=== PATIENT | female | born 1950 | race Caucasian/White ===

== ENCOUNTER → 2018-07-04 08:43 | Outpatient (CLI) | payer MEDICARE, OTHER, SELFPAY ==
--- NOTE | 2018-07-04 | DI.MG.S_ITS ---
BILATERAL DIGITAL SCREENING MAMMOGRAM 3D/2D WITH CAD: 07/04/2018 CLINICAL: Routine screening. Family history of breast cancer. Comparison is made to exams dated: 06/17/2013 mammogram, 08/24/2011 mammogram, and 08/26/2009 mammogram - [facility]. The tissue of both breasts is heterogeneously dense. This may lower the sensitivity of mammography. Current study was also evaluated with a Computer Aided Detection (CAD) system. No significant masses, calcifications, or other findings are seen in either breast. There has been no significant interval change. IMPRESSION: NEGATIVE There is no mammographic evidence of malignancy. A 1 year screening mammogram is recommended. This exam was interpreted at Station ID: [id number]. NOTE: For mammograms, a report in lay terms will be sent to the patient. Approximately 15% of breast malignancies will not be visualized mammographically. In the management of a palpable breast mass, a negative mammogram must not discourage biopsy of a clinically suspicious lesion. Electronically Signed By: Rylan marquez/jin:07/04/2018 12:13:38 letter sent: Normal Exam ACR BI-RADS Category 1: Negative [id number]
== END ==
PROVIDERS: PCP Family Medicine; Visit Provider Family Medicine
DX: Z12.31 Encounter for screening mammogram for malignant neoplasm of breast (principal); Z80.3 Family history of malignant neoplasm of breast
CPT/HCPCS: 77063; 77067

== ENCOUNTER → 2020-03-01 08:30 | Outpatient (CLI) | payer MEDICARE, OTHER, SELFPAY ==
[2020-03-01 10:22] LABS: COVID19 -Nasal RAPID Negative (Negative)
== END ==
PROVIDERS: Visit Provider Nurse Practitioner Family
DX: Z01.812 Encounter for preprocedural laboratory examination (principal); Z20.822 Contact with and (suspected) exposure to COVID-19
CPT/HCPCS: 87635; C9803

== ENCOUNTER 2020-03-02 06:18 | Day surgery (SDC) | payer MEDICARE, OTHER, SELFPAY ==
[2020-03-02] MEDS: PROPARACAINE 0.5% OPHTH SOL 2 DROPS EYE-OP (07:10)
[2020-03-02] MEDS: CATARACT EYE COMPOUND (10 DROPS/SYRINGE) 3 DROPS EYE-OP (07:17)
[2020-03-02 07:20] VITALS: BP 130/69; PULSE 52; RESP 20; TEMP 36.6; O2SAT 98; BMI 22.0
--- NOTE | 2020-03-02 07:41 | PM.PREOP ---
Pre-operative Note Interval Note History & Physical reviewed/Exam performed by Physician: Yes Changes to H&P: No
--- NOTE | 2020-03-02 07:42 | P.OP_ITS ---
Operative Date/Time/Diagnoses Pre-op diagnosis: Nuclear Cataract Left eye Post-op diagnosis: same Procedure & Clinicians Same procedure as scheduled: Yes Surgeon: Jose Manuel Harvey Anesthesia Type: MAC +/- and Sedation Operative Notes Procedure in detail: Patient brought to the operating suite. Tetracaine drops placed in the left eye. Patient was prepped and draped in sterile manner. Wire lid speculum was placed in the eye. Betadine drops were placed on the eye. This was irrigated. Lidocaine jelly was placed on the eye. A paracentesis port was created with a side-port blade. 0.1 mL 1% preservative free lidocaine was injected into the anterior chamber. The anterior chamber was deepened with viscoelastic. 2.6 mm keratome was used to create a temporal clear corneal incision. Cystotome and Utrata forceps were used to create continuous tear capsulorrhexis. Balanced salt solution was used to hydro dissect the nucleus. The phacoemulsification handpiece was inserted and the nucleus was removed using the stop and chop technique. The irrigation aspiration handpiece was inserted and the remaining cortex was removed. Anterior chamber was deepened with viscoe lastic. An Mahmood ZCB00 intraocular lens with a power of 23.0 was injected into the capsular bag. Irrigation aspiration handpiece was inserted and the remaining viscoelastic was removed. Incision was hydrated with balanced salt solution and found to be leak free with pressure with [place]ck-[place] sponges. 0.1 mL Vigamox injected anterior chamber. 0.3 mL Kenalog 10 mg was injected subconjunctivally. Lid speculum was removed. The patient left the operating room in excellent condition. Complications: none Post-operative Condition: stable Disposition: same day surgery
--- NOTE | 2020-03-02 07:42 | PM.PREOP ---
Pre-operative Note Interval Note History & Physical reviewed/Exam performed by Physician: Yes Changes to H&P: No
[2020-03-02] MEDS: CHONDROIDTIN/SOD HYALURONATE 1.05 ML SYRINGE INTRAOCULA (07:55)
[2020-03-02] MEDS: PHENYLEPHRINE/LIDOCAINE VIAL (OR) 0.2 ML EYE-OP (07:55)
[2020-03-02] MEDS: TRIAMCINOLONE 50 MG/5 ML VIAL INJ (07:55)
[2020-03-02] MEDS: LIDOCAINE JELLY 2% 5 ML 1 APPLIC TOP (07:55)
[2020-03-02] MEDS: MOXIFLOXACIN INJ 5 MG/ML VIAL EYE-OP (07:55)
[2020-03-02] MEDS: TETRACAINE 0.5% OPHTH DROPS 4 ML 2 DROPS EYE-OP (07:56)
[2020-03-02] MEDS: BALANCED SALT IRRIG SOLN NO.2 500 ML, EPINEPHrine 1 MG IRR (07:56)
[2020-03-02 08:06] VITALS: BP 123/69; PULSE 50; RESP 16; TEMP 36.8; O2SAT 99
== END 2020-03-02 08:18 | disposition home or self-care (01) ==
PROVIDERS: Referring Provider Ophthalmology; Visit Provider Ophthalmology
PROC: (CPT 66984; principal; 2020-03-02 07:45)
DX: H25.12 Age-related nuclear cataract, left eye (principal); I10 Essential (primary) hypertension; E78.5 Hyperlipidemia, unspecified; F41.9 Anxiety disorder, unspecified
CPT/HCPCS: 66984; J0171; J2250; J3301

== ENCOUNTER → 2020-03-15 09:15 | Outpatient (CLI) | payer MEDICARE, OTHER, SELFPAY ==
[2020-03-15 11:26] LABS: COVID19 -Nasal RAPID Negative (Negative)
== END ==
PROVIDERS: Visit Provider Physician Assistant
DX: Z20.822 Contact with and (suspected) exposure to COVID-19 (principal)
CPT/HCPCS: 87635; C9803

== ENCOUNTER 2020-03-16 06:27 | Day surgery (SDC) | payer MEDICARE, OTHER, SELFPAY ==
[2020-03-16 07:16] VITALS: BP 116/65; PULSE 53; RESP 16; TEMP 36.5; O2SAT 100; BMI 22.0
[2020-03-16] MEDS: PROPARACAINE 0.5% OPHTH SOL 2 DROPS EYE-OP (07:29)
[2020-03-16] MEDS: CATARACT EYE COMPOUND (10 DROPS/SYRINGE) 3 DROPS EYE-OP (07:30)
--- NOTE | 2020-03-16 07:38 | PM.PREOP ---
Pre-operative Note Interval Note History & Physical reviewed/Exam performed by Physician: Yes Changes to H&P: No
--- NOTE | 2020-03-16 07:38 | PM.OP.1 ---
Operative Date/Time/Diagnoses Pre-op diagnosis: Nuclear cataract right eye Procedure & Clinicians Procedure: Cataract Surgery Same procedure as scheduled: Yes Surgeon: Jose Manuel Harvey Anesthesia Type: MAC +/- and Sedation Operative Notes Procedure in detail: Patient brought to the operating suite. Tetracaine drops placed in the right eye. Patient was prepped and draped in sterile manner. Wire lid speculum was placed in the eye. Betadine drops were placed on the eye. This was irrigated. Lidocaine jelly was placed on the eye. A paracentesis port was created with a side-port blade. 0.1 mL 1% preservative free lidocaine was injected into the anterior chamber. The anterior chamber was deepened with viscoelastic. 2.6 mm keratome was used to create a temporal clear corneal incision. Cystotome and Utrata forceps were used to create continuous tear capsulorrhexis. Balanced salt solution was used to hydro dissect the nucleus. The phacoemulsification handpiece was inserted and the nucleus was removed using the stop and chop technique. The irrigation aspiration handpiece was inserted and the remaining cortex was removed. Anterior chamber was deepened with viscoelastic. An Mahmood ZCB00 intraocular lens with a power of 23.0 was injected into the capsular bag. Irrigation aspiration handpiece was inserted and the remaining viscoelastic was removed. Incision was hydrated with balanced salt solution and found to be leak free with pressure with Weck-[place] sponges. 0.1 mL Vigamox injected anterior chamber. 0.3 mL Kenalog 10 mg was injected subconjunctivally. Lid speculum was removed. The patient left the operating room in excellent condition. Complications: none Post-operative Condition: stable Disposition: same day surgery
[2020-03-16] MEDS: TRIAMCINOLONE 50 MG/5 ML VIAL INJ (07:54)
[2020-03-16] MEDS: CHONDROIDTIN/SOD HYALURONATE 1.05 ML SYRINGE INTRAOCULA (07:54)
[2020-03-16] MEDS: PHENYLEPHRINE/LIDOCAINE VIAL (OR) 0.2 ML EYE-OP (07:54)
[2020-03-16] MEDS: MOXIFLOXACIN INJ 5 MG/ML VIAL EYE-OP (07:54)
[2020-03-16] MEDS: BALANCED SALT IRRIG SOLN NO.2 500 ML, EPINEPHrine 1 MG IRR (07:55)
[2020-03-16] MEDS: TETRACAINE 0.5% OPHTH DROPS 4 ML 2 DROPS EYE-OP (07:55)
[2020-03-16] MEDS: LIDOCAINE JELLY 2% 5 ML 1 APPLIC TOP (07:55)
[2020-03-16 08:05] VITALS: BP 108/67; PULSE 51; RESP 16; TEMP 36.8; O2SAT 100
== END 2020-03-16 08:14 | disposition home or self-care (01) ==
PROVIDERS: Referring Provider Ophthalmology; Visit Provider Ophthalmology
PROC: (CPT 66984; principal; 2020-03-16 07:45)
DX: H25.11 Age-related nuclear cataract, right eye (principal); I10 Essential (primary) hypertension; K21.9 Gastro-esophageal reflux disease without esophagitis
CPT/HCPCS: 66984; J0171; J2250; J3301

== ENCOUNTER → 2020-05-27 11:03 | Outpatient (CLI) | payer MEDICARE, OTHER, SELFPAY ==
--- NOTE | 2020-05-27 | DI.CT.S_ITS ---
PROCEDURE: CT LUMBAR SPINE WO CON INDICATIONS: Scoliosis, unspecified TECHNIQUE: Noncontrast 3 mm thick sections acquired from the T12 level to the sacrum. Sagittal and coronal reformats were constructed. For radiation dose reduction, the following was used: automated exposure control. COMPARISON: [facility], MR, L-SPINE W&WO CONTRAST, 02/07/2017, 17:56. [facility], CR, XR LUMBAR SPINE 2 OR 3 VIEWS, 02/21/2017, 10:51. [facility], CR, XR LUMBAR SPINE 2 OR 3 VIEWS, 05/30/2017, 11:11. [facility], CR, XR LUMBAR SPINE 2 OR 3 VIEWS, 05/18/2020, 15:02. FINDINGS: Image quality: Excellent. Bones: No acute vertebral body compression fractures. No suspicious lytic or blastic bony lesions. No pars defects. Mild levoconvex scoliotic curvature is noted. Minimal retrolisthesis is seen at L2-L3. T12-L1: Normal. L1-L2: Normal. L2-L3: [id number]-[id number] loss of disc height is seen. Moderate disc bulge can be seen at this level. There is a prominent disc protrusion seen, which is eccentric to the left. There is moderate to severe bilateral neural foraminal narrowing seen, left worse than right. There is a degree of compression seen upon the exiting nerve roots. Moderate central canal narrowing is seen. These imaging findings have progressed compared to the prior study. L3-L4: Moderate to severe loss of disc height is seen. Vacuum disc phenomenon is seen at this level. Endplate irregularity and sclerosis can be seen. At least partially bridging endplate osteophytes can be seen on the right. Posteriorly projected endplate osteophytes are seen. Moderate disc bulge is seen, with disc protrusions within both foraminal regions. Moderate facet joint hypertrophy is seen. There is moderate to severe bilateral neural foraminal narrowing seen, left worse than right. At least moderate central canal narrowing can be seen. These imaging findings have progressed compared to the prior study. L4-L5: Postoperative changes are seen at this level, with left-sided pedicle screws. The screws are well placed. There has been removal of portions of the posterior elements. The disc height is relatively well preserved. Moderate disc bulge is seen. Moderate bilateral neural foraminal narrowing can be seen, right worse than left. No significant central canal narrowing is seen. Stable from the prior study. L5-S1: The disc height is well preserved. Mild generalized disc bulge is seen. At least moderate facet hypertrophy can be seen. No significant neural foraminal narrowing can be seen. The central canal is widely patent. When comparison is made with the prior examination, these findings are similar. Soft tissues: No retroperitoneal masses or hematomas. Visualized aorta is normal in caliber. Atherosclerotic calcification is noted. IMPRESSION: L4-5 postoperative hardware, without complication seen. Multiple levels of degenerative change are seen, which are worst at L2-L3 and L3-L4. Dictated by: Jax Hahn M.D. on 05/27/2020 at 10:46 Approved by: Jax Hahn M.D. on 05/27/2020 at 10:54
== END ==
PROVIDERS: PCP Nurse Practitioner Family; Referring Provider Nurse Practitioner Family; Visit Provider Orthopaedic Surgery Orthopaedic Surgery of the Spine
DX: M41.9 Scoliosis, unspecified (principal); M47.816 Spondylosis without myelopathy or radiculopathy, lumbar region
CPT/HCPCS: 72131

== ENCOUNTER 2020-06-20 17:34 | Emergency (ER) | payer MEDICARE, OTHER, SELFPAY ==
[2020-06-20 17:41] VITALS: BP 166/69; PULSE 61; RESP 20; TEMP 37.2; O2SAT 100
--- NOTE | 2020-06-20 18:04 | ED.ANIMALBIT ---
HPI - Animal Bite General Chief Complaint: Animal Bite Stated Complaint: cat bite left pinky finger and leg Time Seen by Provider: 06/20/20 18:04 Source: patient Mode of arrival: Ambulatory Limitations: no limitations History of Present Illness HPI narrative: 70-year-old female nonsmoker with history of hypertension and up-to-date tetanus shot complains of the chief complaint of a provoked cap bite to her left pinky finger and her left anterior guevara. She states that her cat has had infected ear and she was attempting to care for it when it became upset and bit and scratched her. The patient is hers and can be observed for the next 10 days. She has full range of motion and no active bleeding. She denies any numbness, tingling or weakness complaint: animal bite Onset (ago): hour(s) Animal: cat Description of animal: household pet Mechanism: bite Location - Extremities: Left: hand and lower leg Pain description: sharp Severity scale (1-10): 3 Context: provoked Associated symptoms: none Treatments prior to arrival: wound dressing(s) and irrigation Related Data Patient tetanus UTD: Yes Home Medications Medication Instructions Recorded Confirmed [Iberogast] 20 drp PO Q DAY PRN #0 02/03/16 03/16/20 [bosweilla] 1 tab PO 2-3XDAY PRN #0 02/03/16 03/16/20 atenolol 50 mg PO QDAY #0 02/03/16 03/16/20 atorvastatin [Lipitor] 20 mg PO HS #0 02/03/16 03/16/20 Align 4 mg PO Q DAY #0 08/21/16 03/16/20 sertraline 50 mg PO DAILY 03/02/20 03/16/20 Previous Rx's Medication Instructions Recorded alprazolam 0.5 mg PO HS #20 tab 05/26/17 amoxicillin-pot clavulanate 1 tab PO BID #20 tab 06/20/20 [Augmentin] Allergies Allergy/AdvReac Type Severity Reaction Status Date / Time morphine [MORPHINE] Allergy Unknown HIVES Verified 03/16/20 07:12 Sulfa (Sulfonamide Allergy Unknown HIVES Verified 03/16/20 07:12 Antibiotics) [SULFA (SULFONAMIDE ANTIBIOTICS)] Review of Systems Constitutional Constitutional: Denies chills, Denies fatigue, Denies fever(s), Denies frequent falls, Denies lethargy and Denies weakness Eyes Eyes: Denies change in vision, Denies eye discharge, Denies irritation and Denies loss of vision ENT Ears, Nose, Mouth, and Throat: Denies change in voice, Denies dizziness, Denies neck pain, Denies sore throat and Denies throat swelling Cardiovascular Cardiovascular: Denies chest pain, Denies irregular heart rhythm, Denies lightheadedness, Denies palpitations, Denies dyspnea, Denies dyspnea on exertion and Denies orthopnea Respiratory Respiratory: Denies cough, Denies dyspnea, Denies dyspnea on exertion and Denies wheezing Gastrointestinal Gastrointestinal: Denies abdominal pain, Denies change in bowel habits, Denies diarrhea, Denies nausea and Denies vomiting Musculoskeletal Musculoskeletal: Denies neck pain and Denies numbness Integumentary/Breasts Skin/Breast: Denies pruritus, Denies erythema, Denies rash and Reports wounds Neurologic Neurologic: Denies behavioral changes, Denies confusion, Denies dizziness, Denies frequent falls, Denies loss of vision, Denies numbness and Denies weakness Psychiatric Psychiatric: Denies anxiety, Denies behavioral changes, Denies confusion, Denies depression, Denies homicidal ideation and Denies suicidal ideation Endocrine Endocrine: Denies fatigue, Denies flushing and Denies palpitations Hematologic/Lymphatic Hematologic/Lymphatic: Denies easy bruising Allergic/Immunologic Allergic/Immunologic: Denies urticaria, Denies throat swelling and Denies wheezing Patient History Social History household members: family Smoking Status: Former smoker alcohol intake: current Smoking Status: Former smoker alcohol intake frequency: 0-2 drinks per day Substance Use Type: does not use Exam Narrative Exam Narrative: GEN: AOx3 and in mild distress EYES: Pupils are equal, round, and reactive to light and accommodation. Extraoccular muscles are intact bilaterally. There is no subconjunctival hemorrhage or exudate. CHEST: Lungs are clear to auscultation bilaterally and free of wheezes, rales, or rhonchi. Heart rate is regular rhythm, there are no murmurs, clicks, rubs, or gallops. There is no chest wall tenderness. ABD: Abdomen is soft and nontender. There is no guarding or rebound. Bowel sounds are normal in all 4 quadrants. There is no mass or organomegaly. EXT: 0.5 cm laceration to the tip of left index finger and slightly gape am bleeding, no foreign body, will benefit from 1 suture. Otherwise Full painless ROM of all extremities with no loss of sensation or strength. SKIN: Additionally, she has to puncture wounds to her left anterior guevara where she was apparently scratched, no suspicion of foreign body, no active bleeding, no need for repair Warm, pink, and dry. No erythema or rash Initial Vital Signs Initial Vital Signs: Vital Signs Temperature 99.0 F 06/20/20 17:41 Pulse Rate 61 06/20/20 17:41 Respiratory Rate 20 06/20/20 17:41 Blood Pressure 166/69 H 06/20/20 17:41 Pulse Oximetry 100 06/20/20 17:41 Procedures Laceration Repair Laceration 1: Site: hand Side (If applicable): left Size (cm): 0.5 Description: linear Depth: simple, single layer Pre-repair: wound explored Skin layer closed with: nylon Size (cm): 5-0 Number of sutures: 1 Technique: simple, interrupted Course Orders Ordered: Discontinued Medications Amoxicillin/Clavulanate Potassium (Amoxicillin/Clav 875/125 Mg) 1 tab PO NOW ONE Stop: 06/20/20 18:17 Last Admin: 06/20/20 18:22 Dose: 1 tab Documented by: ROSI Vital Signs Vital signs: Vital Signs - 8 hr 06/20/20 17:41 Temperature 99.0 F Pulse Rate 61 Respiratory Rate 20 Blood Pressure 166/69 H Pulse Oximetry 100 MDM - Animal Bite MDM Narrative Medical decision making narrative: Patient has uncomplicated cat bite to left index finger. No suspicion of foreign body, no evidence of cellulitis, flexor tenosynovitis or other. Patient is given extensive return precautions and has had her questions answered to her apparent satisfaction Discharge Plan Departure Patient Disposition: Home Clinical Impression: Cat bite Qualifiers: Encounter type: initial encounter Qualified Code(s): W55.01XA - Bitten by cat, initial encounter Instructions: DI for Cat Bite Activity Restrictions/Additional Instructions: Please keep the wound clean and dry to the best of your ability. Please monitor for signs of infection such as redness to the skin or increasing pain. Have the sutures removed by your doctor in about 7 days. If you are unable to get into your doctor, we would be happy to remove the sutures in that same timeframe. Your antibiotics have been electronically transmitted to [facility] at your request Prescriptions: New amoxicillin-pot clavulanate [Augmentin] 875-125 mg tablet 1 tab PO BID Qty: 20 RF: 0 No Action atorvastatin [Lipitor] 20 MG tablet 20 mg PO HS Qty: 0 RF: 0 atenolol 50 MG tablet 50 mg PO QDAY Qty: 0 RF: 0 [Iberogast] 20 drp PO Q DAY PRN (Reason: Abdominal Distention) Qty: 0 RF: 0 [bosweilla] 1 tab PO 2-3XDAY PRN (Reason: Abdominal Discomfort) Qty: 0 RF: 0 Align 4 MG capsule 4 mg PO Q DAY Qty: 0 RF: 0 alprazolam 0.5 MG tablet 0.5 mg PO HS Qty: 20 RF: 0 sertraline 50 mg tablet 50 mg PO DAILY RF: 0 Referrals: Roxanne Saavedra ARNP [Primary Care Provider] -
[2020-06-20] MEDS: AMOXICILLIN/CLAV 875/125 MG 1 TAB PO (18:22)
== END 2020-06-20 18:30 | disposition home or self-care (01) ==
PROVIDERS: Emergency Provider Emergency Medicine; PCP Nurse Practitioner Family
DX: S61.257A Open bite of left little finger without damage to nail, initial encounter (principal); W55.01XA Bitten by cat, initial encounter
CPT/HCPCS: 99283

== ENCOUNTER 2020-06-21 14:17 | Inpatient (IN) | payer MEDICARE, OTHER, SELFPAY ==
[2020-06-21 14:24] VITALS: BP 137/63; PULSE 59; RESP 16; TEMP 36.7; O2SAT 100
[2020-06-21 15:12] LABS: HEMOLYSIS < 15 (0-50); Prothrombin Time 10.9 SECONDS (10.1-12.7)
[2020-06-21 15:15] LABS: PTT Partial Thromboplastin Tim 37 SECONDS (26.4-36.2)
[2020-06-21 15:17] LABS: Alanine Aminotransferase 20 IU/L (<35); Albumin 4.4 g/dL (3.5-5.0); Albumin Globulin Ratio 1.2 (1.0-2.8); Alkaline Phosphatase 120 U/L (38-126); Aspartate Aminotransferase 36 IU/L (14-36); Blood Urea Nitrogen 17 mg/dL (7-17); Calcium 9.7 mg/dL (8.4-10.2); Carbon Dioxide 27 mmol/L (22-32); Chloride 102 mmol/L (98-107); Estimated Glomerular Filt Rate > 60.0 mL/min (>60); Globulin 3.7 g/dL (1.7-4.1); Glucose 84 mg/dL (80-110); Lipase 127 U/L (23-300); Potassium 3.8 mmol/L (3.4-5.1); Sodium 138 mmol/L (137-145); Total Protein 8.1 g/dL (6.3-8.2)
[2020-06-21 15:18] LABS: Lactate (Lactic Acid) 1.1 mmol/L (0.7-2.1)
[2020-06-21 15:20] LABS: Add Manual Diff / Slide Review NO; Basophils Absolute Auto 0 /uL (0-100); Basophils Percent Auto 0.6 % (0-2); Eosinophils Absolute Auto 200 /uL (0-450); Eosinophils Percent Auto 3.1 % (2-4); Hematocrit 39.3 % (36-46); Hemoglobin 13.9 g/dL (12.0-16.0); Lymphocytes Absolute Auto 1900 /uL (1100-4500); Lymphocytes Percent Auto 25.5 % (25-40); Mean Corpuscular HGB Conc 35.3 % (30-36); Mean Corpuscular Hemoglobin 31.9 PG (26-34); Mean Corpuscular Volume 90.2 fL (80-100); Monocytes Absolute Auto 700 /uL (0-900); Monocytes Percent Auto 8.9 % (3-14); Neutrophils Absolute Auto 4600 /uL (1500-7000); Neutrophils Percent Auto 61.9 % (50-75); Platelet Count 198 X10^3/uL (150-400); Red Blood Cell Count 4.35 X10^6/uL (4.0-5.2); Red Cell Distribution Width 13.3 % (11.6-14.8); White Blood Cell Count 7.4 X10^3/uL (4.5-11.0)
--- NOTE | 2020-06-21 15:27 | ED.SKABFB ---
HPI - Skin/Abscess/Foreign Bdy General Chief complaint: Skin/Abscess/Foreign Body Stated complaint: suspects blood infection from stitched wound Time Seen by Provider: 06/21/20 15:23 Source: patient Mode of arrival: Ambulatory Limitations: no limitations History of Present Illness HPI narrative: Patient is a 70-year-old female here for evaluation of the worsening infection to her left hand/arm. Over the past 24 hours she was bit on her left little finger by her own domesticated cat. The cat is up-to-date on immunizations. She is up-to-date on immunizations. She was seen here in the emergency department afterwards and had 1 stitch placed and a cut the end of her finger. She was started on Augmentin. She has taken a couple doses of this and stated that as the day went on she has notice redness increased upper are. She is feeling relatively well. Related Data Home Medications Medication Instructions Recorded Confirmed [Iberogast] 20 drp PO Q DAY PRN #0 02/03/16 06/21/20 atenolol 50 mg PO QDAY #0 02/03/16 06/21/20 atorvastatin [Lipitor] 20 mg PO HS #0 02/03/16 06/21/20 Align 4 mg PO Q DAY #0 08/21/16 06/21/20 sertraline 50 mg PO DAILY 03/02/20 06/21/20 Previous Rx's Medication Instructions Recorded amoxicillin-pot clavulanate 1 tab PO BID #20 tab 06/20/20 [Augmentin] Allergies Allergy/AdvReac Type Severity Reaction Status Date / Time morphine [MORPHINE] Allergy Unknown HIVES Verified 03/16/20 07:12 Sulfa (Sulfonamide Allergy Unknown HIVES Verified 03/16/20 07:12 Antibiotics) [SULFA (SULFONAMIDE ANTIBIOTICS)] Review of Systems Constitutional Constitutional: Denies fever(s) and Denies headache(s) Eyes Eyes: Denies blurry vision ENT Ears, Nose, Mouth, and Throat: Denies headache(s) Cardiovascular Cardiovascular: Denies chest pain and Denies dyspnea Respiratory Respiratory: Denies dyspnea Gastrointestinal Gastrointestinal: Denies abdominal pain Musculoskeletal Musculoskeletal: Denies arthralgias and Denies myalgias Integumentary/Breasts Comments: Redness to her left hand extending upper arm Neurologic Neurologic: Denies behavioral changes and Denies headache(s) Psychiatric Psychiatric: Denies behavioral changes Hematologic/Lymphatic On Anticoagulants: No Allergic/Immunologic Allergic/Immunologic: Denies urticaria Patient History Medical History Depression GERD (gastroesophageal reflux disease) Hyperlipidemia Hypertension Lumbar stenosis with neurogenic claudication Social History household members: family Smoking Status: Former smoker alcohol intake: current Smoking Status: Former smoker alcohol intake frequency: 0-2 drinks per day Substance Use Type: does not use Exam Initial Vital Signs Initial Vital Signs: Vital Signs Temperature 98.1 F 06/21/20 14:24 Pulse Rate 59 L 06/21/20 14:24 Respiratory Rate 16 06/21/20 14:24 Blood Pressure 137/63 06/21/20 14:24 Pulse Oximetry 100 06/21/20 14:24 Const General: cooperative and comfortable Limitations: mental status not altered HENMT Head: normal to inspection and normocephalic Resp Effort & Inspection: normal respiratory effort Auscultation: clear to auscultation bilaterally Cardio Rate: regular rate Rhythm: regular rhythm GI Inspection: non-distended Skin Other: Patient has 1 wound at the tip of her left little finger with a stitch in place. There is surrounding erythema. There are also several puncture wounds between the MCP and the IP joint. The ulnar aspect of the little fingers also red. The ulnar aspect of his hand is red and there is streaking up the arm on the medial aspect to her armpit. Neuro General: patient alert, patient awake and patient oriented x3 Cognition: normal cognition Speech: speech normal Extrem General: normal to inspection and capillary refill normal Psych Appearance: grossly normal and well kempt Course Orders Ordered: ED Orders 06/21/20 14:52 COVID19 - ADMIT (HISTOLOGIST TECHNOLOGIST swab/PCR) Stat 06/21/20 14:55 Blood Culture Stat Complete Blood Count AUTO DIFF Stat Comprehensive Metabolic Panel Stat Lactate (Lactic Acid) Stat Lipase Stat Partial Thromboplastin Time Stat Procalcitonin Stat Prothrombin Time INR Stat 06/21/20 15:37 XR hand LT min 3V Stat 06/21/20 15:47 Consult to Physician Urgent Acetaminophen (Acetaminophen 325 Mg Tablet) 650 mg PO Q6HR PRN PRN Reason: Fever/Mild Pain (1-3) Atenolol (Atenolol 50 Mg Tablet) 50 mg PO DAILY [facility] Atorvastatin Calcium (Atorvastatin 20 Mg Tablet) 20 mg PO BEDTIME [place] Hydroxyzine Pamoate (Hydroxyzine Pamoate 25 Mg Capsule) 25 mg PO Q6HR PRN PRN Reason: Anxiety Ampicillin Sodium/Sulbactam (Sodium 3 gm/ Sodium Chloride) 100 mls @ 100 mls/hr IV Q6H [place] Naloxone HCl (Naloxone 0.4 Mg/Ml Vial) 0.2 mg IV Q2MIN PRN PRN Reason: Opiate Reversal Ondansetron HCl (Ondansetron 4 Mg/2 Ml Inj) 4 mg IV Q8HR PRN PRN Reason: Nausea And Vomiting Sertraline HCl (Sertraline 50 Mg Tablet) 100 mg PO BEDTIME [place] Discontinued Medications Ampicillin Sodium/Sulbactam (Sodium 3 gm/ Sodium Chloride) 100 mls @ 100 mls/hr IV NOW ONE Stop: 06/21/20 15:30 Last Infusion: 06/21/20 17:13 Dose: 100 mls/hr Documented by: Infusion: 06/21/20 16:12 Dose: 100 mls/hr Documented by: Admin: 06/21/20 15:54 Dose: 100 mls/hr Documented by: ROSI Vital Signs Vital signs: Vital Signs - 8 hr 06/21/20 14:24 Temperature 98.1 F Pulse Rate 59 L Respiratory Rate 16 Blood Pressure 137/63 Pulse Oximetry 100 MDM - Skin/Abscess/Foreign Bdy Lab Data Attestation: I reviewed the patient's lab results. Result diagrams: 06/21/20 14:55 06/21/20 14:55 Labs: Lab Results 06/21/20 06/21/20 06/21/20 Range/Units 14:52 14:55 14:55 WBC 7.4 (4.5-11.0) X10^3/uL RBC 4.35 (4.0-5.2) X10^6/uL Hgb 13.9 (12.0-16.0) g/dL Hct 39.3 (36-46) % MCV 90.2 (80-100) fL MCH 31.9 (26-34) PG MCHC 35.3 (30-36) % RDW 13.3 (11.6-14.8) % Plt Count 198 (150-400) X10^3/uL Neut % (Auto) 61.9 (50-75) % Lymph % (Auto) 25.5 (25-40) % [place] % (Auto) 8.9 (3-14) % Eos % (Auto) 3.1 (2-4) % Baso % (Auto) 0.6 (0-2) % Neut # (Auto) 4600 (9341-0293) /uL Lymph # (Auto) 1900 (1125-5938) /uL [place] # (Auto) 700 (0-900) /uL Eos # (Auto) 200 (0-450) /uL Baso # (Auto) 0 (0-100) /uL PT 10.9 (10.1-12.7) SECONDS INR 1.0 (0.9-1.3) APTT 37 H (26.4-36.2) SECONDS Sodium (137-145) mmol/L Potassium (3.4-5.1) mmol/L Chloride (98-107) mmol/L Carbon Dioxide (22-32) mmol/L BUN (7-17) mg/dL Creatinine (0.52-1.04) mg/dL Estimated GFR (>60) mL/min BUN/Creatinine Ratio (6-22) Glucose (80-110) mg/dL Lactate (0.7-2.1) mmol/L Calcium (8.4-10.2) mg/dL Total Bilirubin (0.2-1.3) mg/dL AST (14-36) IU/L ALT (<35) IU/L Alkaline Phosphatase (38-126) U/L Total Protein (6.3-8.2) g/dL Albumin (3.5-5.0) g/dL Globulin (1.7-4.1) g/dL Albumin/Globulin Ratio (1.0-2.8) Lipase (23-300) U/L Procalcitonin (<0.5) ng/mL SARS-CoV-2 (PCR) Negative (Negative) 06/21/20 06/21/20 Range/Units 14:55 14:55 WBC (4.5-11.0) X10^3/uL RBC (4.0-5.2) X10^6/uL Hgb (12.0-16.0) g/dL Hct (36-46) % MCV (80-100) fL MCH (26-34) PG MCHC (30-36) % RDW (11.6-14.8) % Plt Count (150-400) X10^3/uL Neut % (Auto) (50-75) % Lymph % (Auto) (25-40) % [place] % (Auto) (3-14) % Eos % (Auto) (2-4) % Baso % (Auto) (0-2) % Neut # (Auto) (0250-4515) /uL Lymph # (Auto) (2561-3555) /uL [place] # (Auto) (0-900) /uL Eos # (Auto) (0-450) /uL Baso # (Auto) (0-100) /uL PT (10.1-12.7) SECONDS INR (0.9-1.3) APTT (26.4-36.2) SECONDS Sodium 138 (137-145) mmol/L Potassium 3.8 (3.4-5.1) mmol/L Chloride 102 (98-107) mmol/L Carbon Dioxide 27 (22-32) mmol/L BUN 17 (7-17) mg/dL Creatinine 0.74 (0.52-1.04) mg/dL Estimated GFR > 60.0 (>60) mL/min BUN/Creatinine Ratio 23.0 H (6-22) Glucose 84 (80-110) mg/dL Lactate 1.1 (0.7-2.1) mmol/L Calcium 9.7 (8.4-10.2) mg/dL Total Bilirubin 1.0 (0.2-1.3) mg/dL AST 36 (14-36) IU/L ALT 20 (<35) IU/L Alkaline Phosphatase 120 (38-126) U/L Total Protein 8.1 (6.3-8.2) g/dL Albumin 4.4 (3.5-5.0) g/dL Globulin 3.7 (1.7-4.1) g/dL Albumin/Globulin Ratio 1.2 (1.0-2.8) Lipase 127 (23-300) U/L Procalcitonin 0.04 (<0.5) ng/mL SARS-CoV-2 (PCR) (Negative) Imaging Data Extremity x-ray #1: Radiologist's Impression: [address] [id number] ReportSigned Patient: Ashleigh Giron AMR#: [id number]: 1950cct:[id number]/Sex: 70 / FDate of Service: 06/21/20Loc: [id number] Number: [id number] Procedure: XR hand LT min 3V Ordering Provider: Asif Ovalle D.O. PROCEDURE: XR HAND LT MIN 3V INDICATIONS: Cat bite little finger with cellulitis TECHNIQUE: 3 views of the hand(s) acquired. COMPARISON: None. FINDINGS: Bones: No fractures or dislocations. Carpal bones are normally aligned. No suspicious bony lesions. No osseous erosive changes. No periosteal reaction. Soft tissues: No suspicious soft tissue calcifications. No soft tissue gas. IMPRESSION: No viktoriya evidence of osteomyelitis. Plain film radiographs can be insensitive to osteomyelitis during the initial 15 days of the disease process. If there is clinical concern for osteomyelitis, then three-phase nuclear medicine bone scan should be considered for further evaluation. Dictated by: Daniela Vallejo MD, PhD on 06/21/2020 at 16:06 Approved by: Daniela Vallejo MD, PhD on 06/21/2020 at 16:08 [facility] Narrative Medical decision making narrative: Patient is nontoxic appearing but does have what appears to be worsening infection with streaking up her left arm. She is not septic. There is no foreign bodies noted on the x-ray. The streaking is despite the oral antibiotics. Feel that admission the hospital further evaluation treatment is warranted. Discussed the case with who is her primary doctor who will admit for further evaluation treatment. Discussed the admission with the patient she expressed understanding and agreement. Discharge Plan Departure Patient Disposition: Admitted as Observation Clinical Impression: Cellulitis, Cat bite Admit Date/Time: 06/21/20 15:53 Admit Provider: Michael Velazco
[2020-06-21 15:36] LABS: Procalcitonin 0.04 ng/mL (<0.5)
--- NOTE | 2020-06-21 15:37 | DI.RAD.S_ITS ---
PROCEDURE: XR HAND LT MIN 3V INDICATIONS: Cat bite little finger with cellulitis TECHNIQUE: 3 views of the hand(s) acquired. COMPARISON: None. FINDINGS: Bones: No fractures or dislocations. Carpal bones are normally aligned. No suspicious bony lesions. No osseous erosive changes. No periosteal reaction. Soft tissues: No suspicious soft tissue calcifications. No soft tissue gas. IMPRESSION: No viktoriya evidence of osteomyelitis. Plain film radiographs can be insensitive to osteomyelitis during the initial 15 days of the disease process. If there is clinical concern for osteomyelitis, then three-phase nuclear medicine bone scan should be considered for further evaluation. Dictated by: Daniela Vallejo MD, PhD on 06/21/2020 at 16:06 Approved by: Daniela Vallejo MD, PhD on 06/21/2020 at 16:08
[2020-06-21] MEDS: AMPICILLIN/SULBACTAM 3 GM 3 GM in SODIUM CHLORIDE 0.9% 100 ML IV ×2 (15:54→21:34)
[2020-06-21 15:58] VITALS: BP 139/67; PULSE 58; RESP 16; TEMP 36.5; O2SAT 96
[2020-06-21 16:15] VITALS: BP 161/77; PULSE 56; RESP 16; TEMP 36.6
[2020-06-21 16:21] LABS: COVID19 - ADMIT (NP swab/PCR) Negative (Negative)
[2020-06-21 16:30] VITALS: BMI 22.3
--- NOTE | 2020-06-21 16:57 | P.HP_ITS ---
History of Present Illness History of Present Illness Date Patient Seen: 06/21/20 Time Patient Seen: 17:08 Date of Onset of Symptoms: 06/20/20 Chief complaint: suspects blood infection from stitched wound Narrative: Yesterday morning pt in usual state of good health was dressing wound on older grumpy cat who responded by biting pt's left hand on the 5th digit. She came in and started po antibiotics however this afternoon was having worsn ing pain/swelling, and streaking up arm so came back in. Reports this sort of thing has happened once before from bite of same grumpy cat. No fever, appetite ok, generally ok apart from arm. Patient History Family & Social History Social History: household members family Safety & Behavioral: Feels Safe in Current Yes Environment Been Physically Hurt or No Threatened By a Person Suicidal Ideation Description None Suicide Plan Description No Plan Tobacco & Substance use: Tobacco type cigarettes Smoking Status Former smoker alcohol intake current alcohol intake frequency 0-2 drinks per day Substance Use Type does not use Meds Home Medications and Allergies Home Medications Medication Instructions Recorded Confirmed Type [Iberogast] 20 drp PO Q DAY PRN #0 02/03/16 03/16/20 History [bosweilla] 1 tab PO 2-3XDAY PRN #0 02/03/16 03/16/20 History atenolol 50 mg PO QDAY #0 02/03/16 03/16/20 History atorvastatin [Lipitor] 20 mg PO HS #0 02/03/16 03/16/20 History Align 4 mg PO Q DAY #0 08/21/16 03/16/20 History alprazolam 0.5 mg PO HS #20 tab 05/26/17 03/16/20 Rx sertraline 50 mg PO DAILY 03/02/20 03/16/20 History amoxicillin-pot clavulanate 1 tab PO BID #20 tab 06/20/20 Rx [Augmentin] Allergies Allergy/AdvReac Type Severity Reaction Status Date / Time morphine [MORPHINE] Allergy Unknown HIVES Verified 03/16/20 07:12 Sulfa (Sulfonamide Allergy Unknown HIVES Verified 03/16/20 07:12 Antibiotics) [SULFA (SULFONAMIDE ANTIBIOTICS)] Review of Systems Review of Systems ROS: Yes All systems reviewed with the patient and are negative except as otherwise documented Exam Vital Signs (past 8 hours): - 06/21/20 14:24 05/03/21 15:58 Temperature 98.1 F 97.7 F Pulse Rate 59 L 58 L Respiratory Rate 16 16 Blood Pressure 137/63 139/67 Pulse Oximetry 100 96 Oxygen Delivery Method Room Air Narrative Exam Narrative: pleasant cat lady sitting in bed Const General: cooperative, healthy appearing, comfortable, well developed and well groomed HENMT Head: normal to inspection, normocephalic and atraumatic Ears: hearing grossly normal bilaterally Nose: external nose normal Face and sinus: normal facial exam Eyes General: appearance normal, both eyes and all related structures Neck Neck: normal visual inspection Resp Effort & Inspection: normal respiratory effort and able to speak in complete sentences Auscultation: clear to auscultation bilaterally Cardio Palpation: normal PMI Rate: regular rate Rhythm: regular rhythm Heart Sounds: S1 normal and S2 normal GI Inspection: normal to inspection Palpation: soft Auscultation: normal bowel sounds Extrem Left upper extremity: hand (LUE 5th digit with approx 4 deep puncture wounds, distalmost wound sutured) Details: other (swollen pinky and ulnar hand, moderate streaking up arm to shoulder) Psych Appearance: grossly normal Mental Status: mental status grossly normal Objective Labs Result Diagrams: 06/21/20 14:55 06/21/20 14:55 Labs: Laboratory Results - last 24 hr 06/21/20 06/21/20 06/21/20 14:52 14:55 14:55 WBC 7.4 RBC 4.35 Hgb 13.9 Hct 39.3 MCV 90.2 MCH 31.9 MCHC 35.3 RDW 13.3 Plt Count 198 Neut % (Auto) 61.9 Lymph % (Auto) 25.5 [place] % (Auto) 8.9 Eos % (Auto) 3.1 Baso % (Auto) 0.6 Neut # (Auto) 4600 Lymph # (Auto) 1900 [place] # (Auto) 700 Eos # (Auto) 200 Baso # (Auto) 0 PT 10.9 INR 1.0 APTT 37 H Sodium Potassium Chloride Carbon Dioxide BUN Creatinine Estimated GFR BUN/Creatinine Ratio Glucose Lactate Calcium Total Bilirubin AST ALT Alkaline Phosphatase Total Protein Albumin Globulin Albumin/Globulin Ratio Lipase Procalcitonin SARS-CoV-2 (PCR) Negative 06/21/20 06/21/20 14:55 14:55 WBC RBC Hgb Hct MCV MCH MCHC RDW Plt Count Neut % (Auto) Lymph % (Auto) [place] % (Auto) Eos % (Auto) Baso % (Auto) Neut # (Auto) Lymph # (Auto) [place] # (Auto) Eos # (Auto) Baso # (Auto) PT INR APTT Sodium 138 Potassium 3.8 Chloride 102 Carbon Dioxide 27 BUN 17 Creatinine 0.74 Estimated GFR > 60.0 BUN/Creatinine Ratio 23.0 H Glucose 84 Lactate 1.1 Calcium 9.7 Total Bilirubin 1.0 AST 36 ALT 20 Alkaline Phosphatase 120 Total Protein 8.1 Albumin 4.4 Globulin 3.7 Albumin/Globulin Ratio 1.2 Lipase 127 Procalcitonin 0.04 SARS-CoV-2 (PCR) Assessment & Plan Assessment & Plan narrative: #infected cat bite to [facility] s/p treatment failure with po abx, minimal/no systemic signs of sepsis, continuing unasyn 3g IV q6hrs begun in ED #hypertension controlled, continue home atenolol 50mg #hyperlipidemia continue home atorvastatin #anxiety continue home sertraline with prn hydroxyzine dispo: admit obs to sc home on po abx when stable code: full diet: regular
[2020-06-21 17:48] VITALS: O2SAT 98
--- NOTE | 2020-06-21 17:49 | PC.ADMIT ---
[email or web address] [place] [address] Admission Note: The patient,Ashleigh Giron,70 y/o, was given written information regarding hospital policies, unit procedures and contact persons. Patient's smoking status: Former smoker. Vital Signs - 8 hr 06/21/20 14:24 06/21/20 15:58 06/21/20 16:15 Temperature 98.1 F 97.7 F 97.8 F Pulse Rate 59 L 58 L 56 L Respiratory Rate 16 16 16 Blood Pressure 137/63 139/67 161/77 H Pulse Oximetry 100 96 06/21/20 17:48 Temperature Pulse Rate Respiratory Rate Blood Pressure Pulse Oximetry 98
[2020-06-21 19:35] VITALS: BP 113/65; PULSE 65; RESP 16; TEMP 36.3
[2020-06-21 20:58] LABS: Add Manual Diff / Slide Review NO; Basophils Absolute Auto 100 /uL (0-100); Eosinophils Absolute Auto 200 /uL (0-450); Eosinophils Percent Auto 3.7 % (2-4); Hematocrit 36.9 % (36-46); Hemoglobin 12.7 g/dL (12.0-16.0); Lymphocytes Absolute Auto 1900 /uL (1100-4500); Lymphocytes Percent Auto 31.7 % (25-40); Mean Corpuscular HGB Conc 34.4 % (30-36); Mean Corpuscular Hemoglobin 31.1 PG (26-34); Mean Corpuscular Volume 90.5 fL (80-100); Monocytes Absolute Auto 600 /uL (0-900); Monocytes Percent Auto 9.8 % (3-14); Neutrophils Absolute Auto 3200 /uL (1500-7000); Neutrophils Percent Auto 53.8 % (50-75); Platelet Count 185 X10^3/uL (150-400); Red Blood Cell Count 4.08 X10^6/uL (4.0-5.2); Red Cell Distribution Width 13.3 % (11.6-14.8); White Blood Cell Count 5.9 X10^3/uL (4.5-11.0)
[2020-06-21 21:13] LABS: BUN Creatinine Ratio 23.9 (6-22); Blood Urea Nitrogen 16 mg/dL (7-17); Calcium 9.2 mg/dL (8.4-10.2); Carbon Dioxide 27 mmol/L (22-32); Chloride 105 mmol/L (98-107); Estimated Glomerular Filt Rate > 60.0 mL/min (>60); Glucose 111 mg/dL (80-110); HEMOLYSIS < 15 (0-50); Potassium 3.7 mmol/L (3.4-5.1); Sodium 139 mmol/L (137-145)
[2020-06-21] MEDS: ATORVASTATIN 20 MG TABLET PO (21:33)
[2020-06-21] MEDS: atenoloL 50 MG TABLET PO (21:47)
[2020-06-21 23:20] VITALS: BP 131/54; PULSE 58; RESP 18; TEMP 36.6; O2SAT 99
[2020-06-22] MEDS: AMPICILLIN/SULBACTAM 3 GM 3 GM in SODIUM CHLORIDE 0.9% 100 ML IV ×4 (04:29→22:25)
[2020-06-22 08:57] VITALS: BP 130/71; PULSE 59; RESP 16; TEMP 36.6; O2SAT 99
--- NOTE | 2020-06-22 09:02 | CM.DANOTE ---
Addendum entered by Adilene Herrera R.N. 06/22/20 10:16: Dr. Norman called back, indicated that she had already seen patient and would like to keep her another day of 12 hours of antibiotics because she failed outpatient treatment. Discussed with Rylan in [facility], and indicated masoud she would need to document the need for inpatient stay and antibiotics. Stated she would do this, she will plan on discharging tomorrow. Addendum entered by Adilene Herrera R.N. 06/22/20 10:12: Left a message over at [facility], Dr. Norman is working today and seeing patients. Relayed that patient has no redness to her arm, and if patient can be discharged home today. Gave extension to receptionist/telephone operator of this immigration case manager. Original Note: DCP: Case received, EMR reviewed and met with patient. Introduced self and role. Was able to obtain information from patient regarding her baseline activity status prior to her hospitalization, as well as her current living situation. DCP assessment completed with information currently available. Patient came to the hospital via private vehicle secondary to a laceration on her left finger secondary to a cat bite, as well as increased redness and erythema to her arm. Patient is here for IV rule out osteomylelitis. Met with patient in her room. She is alert and oriented, pleasant. She resides here in [place] with her daughter, Deirdre. She has another daughter named Alexx who also lives near by. Patient is independent aat her baseline. She stated that she has been bitten before, approximately 4 years ago by her cat. She mentioned that she was in the process of giving the cat antibiotics, and her cat bit her. P: DCP to continue to follow for any resources needed. At this time, no redness to her arm is noted, and according to notes, patient should be going home on oral antibiotics, depending upon results of her diagnostic testing. Adilene Herrera RN/Mica Machine Operator
[2020-06-22] MEDS: SERTRALINE 50 MG TABLET 100 MG PO (09:39)
--- NOTE | 2020-06-22 15:17 | PM.PN.1 ---
Subjective Subjective Date Patient Seen: 06/22/20 Time Patient Seen: 07:58 Interval history: Patient is doing well this morning, had an uenventful night. Edema and erythema have improved in her left hand; however, she continues to have difficulty with flexing her fingers. Tolerating full diet, no nausea vomiting. Ambulating independently. Exam Vital Signs (past 8 hours): - 06/22/20 08:57 Temperature 98 F Pulse Rate 59 L Respiratory Rate 16 Blood Pressure 130/71 Pulse Oximetry 99 Oxygen Delivery Method Room Air Oxygen Flow Rate 0 Narrative Exam Narrative: GENERAL: Alert and oriented, appearing stated age and in no acute distress. HEENT: Head normocephalic/atraumatic. Pupils equal, round, and reactive to light and accomodation. Extraocular muscles intact. Tympanic membranes clear. Nasal mucosa moist, septum midline. Oral mucosa moist, no lesions. Neck soft and supple, no lymphadenopathy. LUNGS: Clear to ausculation bilaterally, no wheezes, rhonchi or rales. CV: Normal S1 and S2 with regular rate and rhythm, no audible murmurs, rubs or gallops. ABDOMEN: Soft, non-tender, non-distended, no organomegaly. Positive bowel sounds. EXTREMITIES: 4 puncture wounds from cat bite along lateral aspect of left 5th digit and palm with minor surrounding erythema and moderate edema. Left forearm is mildly tender to touch with no significant edema or erythema. NEURO: Cranial nerves II through XII grossly intact, no focal deficits. PSYCH: Alert and oriented x 3. Objective Labs Result Diagrams: 06/21/20 20:51 06/21/20 20:51 Labs: Laboratory Results - last 24 hr 06/21/20 06/21/20 06/21/20 14:52 14:55 14:55 WBC 7.4 RBC 4.35 Hgb 13.9 Hct 39.3 MCV 90.2 MCH 31.9 MCHC 35.3 RDW 13.3 Plt Count 198 Neut % (Auto) 61.9 Lymph % (Auto) 25.5 [place] % (Auto) 8.9 Eos % (Auto) 3.1 Baso % (Auto) 0.6 Neut # (Auto) 4600 Lymph # (Auto) 1900 [place] # (Auto) 700 Eos # (Auto) 200 Baso # (Auto) 0 Sodium 138 Potassium 3.8 Chloride 102 Carbon Dioxide 27 BUN 17 Creatinine 0.74 Estimated GFR > 60.0 BUN/Creatinine Ratio 23.0 H Glucose 84 Lactate Calcium 9.7 Total Bilirubin 1.0 AST 36 ALT 20 Alkaline Phosphatase 120 Total Protein 8.1 Albumin 4.4 Globulin 3.7 Albumin/Globulin Ratio 1.2 Lipase 127 Procalcitonin 0.04 SARS-CoV-2 (PCR) Negative 06/21/20 06/21/20 06/21/20 14:55 20:51 20:51 WBC 5.9 RBC 4.08 Hgb 12.7 Hct 36.9 MCV 90.5 MCH 31.1 MCHC 34.4 RDW 13.3 Plt Count 185 Neut % (Auto) 53.8 Lymph % (Auto) 31.7 [place] % (Auto) 9.8 Eos % (Auto) 3.7 Baso % (Auto) 1.0 Neut # (Auto) 3200 Lymph # (Auto) 1900 [place] # (Auto) 600 Eos # (Auto) 200 Baso # (Auto) 100 Sodium 139 Potassium 3.7 Chloride 105 Carbon Dioxide 27 BUN 16 Creatinine 0.67 Estimated GFR > 60.0 BUN/Creatinine Ratio 23.9 H Glucose 111 H Lactate 1.1 Calcium 9.2 Total Bilirubin AST ALT Alkaline Phosphatase Total Protein Albumin Globulin Albumin/Globulin Ratio Lipase Procalcitonin SARS-CoV-2 (PCR) [facility] Medical History Depression GERD (gastroesophageal reflux disease) Hyperlipidemia Hypertension Lumbar stenosis with neurogenic claudication Social History household members: family Smoking Status: Former smoker alcohol intake: current Assessment & Plan Assessment & Plan narrative: 1. Infected cat bite to [facility], acute Plan: Patient improved with IV antibiotics overnight, has had approximately 12 hours of IV therapy, will continue for another 24 hours and then plan for discharge tomorrow on orals. 2. Hypertension, chronic, present on admission Plan: Controlled, continue home atenolol 50mg. 3. Hyperlipidemia chronic, present on admission Plan: Continue home atorvastatin. 4. Anxiety, chronic, present on admission Plan: Continue home sertraline with prn hydroxyzine Dispo: Anticipate discharge to home tomorrow. Code: full Diet: regular
[2020-06-22 15:35] VITALS: BP 126/65; PULSE 65; RESP 18; TEMP 36.6; O2SAT 99
--- NOTE | 2020-06-22 16:03 | PC.NURSE ---
Patient states that left hand is feeling much better today, there is some swelling but no red streaks up her arm, VSS. Patient is up ad brianna about the room independently.
--- NOTE | 2020-06-22 19:48 | PC.NURSE ---
Addendum entered by Regi Ozuna R.N. 06/22/20 23:22: 1600 dose of Unasyn not infused. Pharmacy and NOC shift RN informed. Original Note: Report received, care assumed 1530. VSS. Denies pain. Low fall risk; moving independently in room. Minor swelling of affected hand, no redness or streaking. Receiving IV atbx.
[2020-06-22] MEDS: ATORVASTATIN 20 MG TABLET PO (21:01)
[2020-06-22] MEDS: SODIUM CHLORIDE 0.9% FLUSH 10 ML IV (21:02)
[2020-06-23 00:05] VITALS: BP 135/76; PULSE 57; RESP 18; TEMP 36.6; O2SAT 99
[2020-06-23] MEDS: AMPICILLIN/SULBACTAM 3 GM 3 GM in SODIUM CHLORIDE 0.9% 100 ML IV ×2 (03:59→10:12)
[2020-06-23 08:00] VITALS: BP 113/75; PULSE 65; RESP 15; TEMP 36.6; O2SAT 99
--- NOTE | 2020-06-23 08:19 | PC.NURSE ---
Patient has a cat bite to her l.little finger with one suture in place. She denies pain and is on iv antibiotics. Patient is independent in the room and is hoping to go home today.
[2020-06-23] MEDS: SERTRALINE 50 MG TABLET 100 MG PO (10:11)
[2020-06-23] MEDS: SODIUM CHLORIDE 0.9% FLUSH 10 ML IV (10:17)
[2020-06-23] MEDS: SODIUM CHLORIDE 0.9% 250 ML 21 ML IV (10:17)
--- NOTE | 2020-06-23 10:48 | PM.DS.1 ---
History of Present Illness History of Present Illness Chief complaint: suspects blood infection from stitched wound Narrative: Yesterday morning pt in usual state of good health was dressing wound on older grumpy cat who responded by biting pt's left hand on the 5th digit. She came in and started po antibiotics however this afternoon was having worsning pain/swelling, and streaking up arm so came back in. Reports this sort of thing has happened once before from bite of same grumpy cat. No fever, appetite ok, generally ok apart from arm. Discharge Providers Provider Date of admission: 06/22/20 15:44 Discharge Date: 06/23/20 Primary care physician: ISAÍAS Wadsworth Consults: 06/21/20 15:47 Consult to Physician Urgent Comment: Consulting Provider: Michael Velazco Reason for consultation: Cellulitis/admission Has provider been notified: Yes Discharge provider: Michael Velazco MD Summary Hospital Course Discharge Diagnosis: cellulitis 2/2 animal bite of LUE 5th digit Hospital Course: Ms. Rosen did well and her infection responded to IV antibiotics with alacrity. After 36 hrs of IV ABX her cellulitis was much improved with only some localized minor swelling around the bite wound. She was eating, sleeping, and ambulating well. Status at Discharge Cognitive/behavioral status at discharge: oriented and at baseline, oriented Functional status at discharge: independent ambulation Overall status at discharge: patient is back to baseline Time Spent with Patient Time spent: Less than 30 minutes Exam Vital Signs (past 8 hours): - 06/23/20 08:00 Temperature 97.8 F Pulse Rate 65 Respiratory Rate 15 Blood Pressure 113/75 Pulse Oximetry 99 Oxygen Delivery Method Room Air Oxygen Flow Rate 0 Narrative Exam Narrative: pleasant lady sitting up in bed Const General: cooperative, healthy appearing, comfortable and well developed Resp Effort & Inspection: normal respiratory effort and able to speak in complete sentences Auscultation: clear to auscultation bilaterally Cardio Rate: regular rate Rhythm: regular rhythm Heart Sounds: S1 normal and S2 normal GI Inspection: normal to inspection Palpation: soft Percussion: normal to percussion Auscultation: normal bowel sounds Skin Other: no streaking up arm, wounds on 5th digit not draining, closing well, sutures intact Extrem Left upper extremity: full ROM, no joint enlargement and hand (5th digit still a bit swollen distally. No streaking. strength/NV intact) Psych Appearance: grossly normal Mental Status: mental status grossly normal Speech and Movement: speech and movement normal Objective Labs Result Diagrams: 06/21/20 20:51 06/21/20 20:51 [facility] Medical History Depression GERD (gastroesophageal reflux disease) Hyperlipidemia Hypertension Lumbar stenosis with neurogenic claudication Social History household members: family Smoking Status: Former smoker alcohol intake: current Discharge Assessment & Plan Assessment and Plan Plan of Treatment: 1. Infected cat bite to [facility], acute Plan: much improved s/p 36 hrs of IV therapy, plan to dc today on oral abx. Previously failed augmentin so will dc on doxycycline 100 bid x7days Arm looks good, wounds improved, ROM and strength of 5th digit good. 2. Hypertension, chronic, present on admission Plan: Controlled, continue home atenolol 50mg. 3. Hyperlipidemia chronic, present on admission Plan: Continue home atorvastatin. 4. Anxiety, chronic, present on admission Plan: Continue home sertraline with prn hydroxyzine Dispo: dc home today after am unasyn dose complete. f/u in clinic for TCM and suture removal within a week. Code: full Diet: regular Discharge Plan Discharge Plan Patient Disposition: Home Provider Discharge Comment: after completing morning unasyn Discharge orders & Medications Prescriptions: New doxycycline hyclate 100 mg capsule 100 mg PO BID 7 Days Qty: 14 RF: 0 Continued atorvastatin [Lipitor] 20 MG tablet 20 mg PO HS Qty: 0 RF: 0 atenolol 50 MG tablet 50 mg PO QDAY Qty: 0 RF: 0 [Iberogast] 20 drp PO Q DAY PRN (Reason: Abdominal Distention) Qty: 0 RF: 0 Align 4 MG capsule 4 mg PO Q DAY Qty: 0 RF: 0 amoxicillin-pot clavulanate [Augmentin] 875-125 mg tablet 1 tab PO BID Qty: 20 RF: 0 sertraline 50 mg tablet 50 mg PO DAILY RF: 0 Follow up/Referrals: Roxanne Saavedra ARNP [Primary Care Provider] - Diet/Activity/Treatments Diet: Diet as Tolerated Activity: as tolerated, keep finger covered Skin/Wound/Dressing Care Report to your healthcare provider any signs of infection, such as:: chills, fever, increased pain, unusual drainage and unusual redness Dressing: keep dry and covered Visit Report/Discharge Packet Instructions: Animal Bites, DI for Animal Bites, Doxycycline Discharge Data Primary Care Provider: Roxanne Saavedra
--- NOTE | 2020-06-23 13:37 | CM.DPC ---
DCP Discharge Home Per MD, pt is medically stable for d/c home later today after final IV-Abx dose and outpt follow up. Per RN, pt is looking forward to discharging home today and no concerns at this time. Plan: Patient to d/c home on oral abx and outpt follow up and no further SW needs at this time. STEPHY Son
== END 2020-06-23 13:44 | disposition home or self-care (01) | DRG 603 ==
LOC: ED 15:29 → AC 15:56
PROVIDERS: Admitting Provider Family Medicine; Emergency Provider Emergency Medicine; PCP Nurse Practitioner Family; Referring Provider Emergency Medicine; Visit Provider Family Medicine
DX: L03.012 Cellulitis of left finger (principal); S60.477A Other superficial bite of left little finger, initial encounter; I10 Essential (primary) hypertension; E78.5 Hyperlipidemia, unspecified; F41.9 Anxiety disorder, unspecified; Z20.822 Contact with and (suspected) exposure to COVID-19; W55.01XA Bitten by cat, initial encounter; Z87.891 Personal history of nicotine dependence
CPT/HCPCS: 36415; 73130; 80048; 80053; 83605; 83690; 84145; 85025; 85610; 85730; 87040; 87635; 96365; 99283; 99284; C9803; G0378; J0295

== ENCOUNTER → 2021-01-27 14:45 | Outpatient (CLI) | payer MEDICARE, OTHER, SELFPAY ==
[2021-01-27 15:26] LABS: Add Manual Diff / Slide Review NO; Basophils Absolute Auto 0 /uL (0-100); Basophils Percent Auto 0.7 % (0-2); Eosinophils Absolute Auto 300 /uL (0-450); Eosinophils Percent Auto 5.5 % (2-4); Hematocrit 37.7 % (36-46); Hemoglobin 12.9 g/dL (12.0-16.0); Lymphocytes Absolute Auto 1600 /uL (1100-4500); Lymphocytes Percent Auto 34.2 % (25-40); Mean Corpuscular HGB Conc 34.2 % (30-36); Mean Corpuscular Hemoglobin 30.5 PG (26-34); Mean Corpuscular Volume 89.2 fL (80-100); Monocytes Absolute Auto 500 /uL (0-900); Monocytes Percent Auto 9.9 % (3-14); Neutrophils Absolute Auto 2300 /uL (1500-7000); Neutrophils Percent Auto 49.7 % (50-75); Platelet Count 233 X10^3/uL (150-400); Red Blood Cell Count 4.22 X10^6/uL (4.0-5.2); Red Cell Distribution Width 13.6 % (11.6-14.8); White Blood Cell Count 4.7 X10^3/uL (4.5-11.0)
[2021-01-27 15:39] LABS: Alanine Aminotransferase 50 IU/L (<35); Albumin 4.3 g/dL (3.5-5.0); Albumin Globulin Ratio 1.3 (1.0-2.8); Alkaline Phosphatase 171 U/L (38-126); Aspartate Aminotransferase 47 IU/L (14-36); Bilirubin Total 0.9 mg/dL (0.2-1.3); Blood Urea Nitrogen 15 mg/dL (7-17); Calcium 9.6 mg/dL (8.4-10.2); Carbon Dioxide 29 mmol/L (22-32); Chloride 103 mmol/L (98-107); Creatine Kinase 45 U/L (30-135); Estimated Glomerular Filt Rate > 60.0 mL/min (>60); Globulin 3.4 g/dL (1.7-4.1); Glucose 91 mg/dL (80-110); HEMOLYSIS < 15 (0-50); Potassium 4.8 mmol/L (3.4-5.1); Sodium 138 mmol/L (137-145); Total Protein 7.7 g/dL (6.3-8.2)
[2021-01-27 15:51] LABS: NT-proBNP (BNP-Adult 18+) 251 pg/mL (<125); Troponin I < 0.012 ng/mL (0.01-0.034)
== END ==
PROVIDERS: PCP Family Medicine; Referring Provider Family Medicine; Visit Provider Family Medicine
DX: I10 Essential (primary) hypertension (principal); R00.2 Palpitations; R07.9 Chest pain, unspecified
CPT/HCPCS: 36415; 80053; 82550; 83880; 84484; 85025

== ENCOUNTER → 2021-11-12 10:29 | Outpatient (CLI) | payer MEDICARE, OTHER, SELFPAY ==
[2021-11-12 13:08] LABS: Influenza A - CEPHEID Flu A NEGATIVE (NEGATIVE); Influenza B - CEPHEID Flu B NEGATIVE (NEGATIVE)
[2021-11-12 13:35] LABS: COVID-19 CEPHEID PCR (VTM/NP) Negative (Negative)
== END ==
PROVIDERS: PCP Family Medicine; Visit Provider Registered Nurse
DX: R05.9 Cough, unspecified (principal)
CPT/HCPCS: 0240U

== ENCOUNTER → 2022-01-18 14:45 | Outpatient (CLI) | payer MEDICARE, OTHER, SELFPAY ==
--- NOTE | 2022-01-18 | DI.MG.S_ITS ---
BILATERAL DIGITAL SCREENING MAMMOGRAM 3D/2D WITH CAD: 01/18/2022 CLINICAL: Routine screening. Family history of breast cancer. Comparison is made to exams dated: 07/04/2018 mammogram, 06/17/2013 mammogram, and 08/24/2011 mammogram - [facility]. Both breasts are heterogeneously dense, which may obscure small masses (category c / 51-75% glandular tissue). Current study was also evaluated with a Computer Aided Detection (CAD) system. No significant masses, calcifications, or other findings are seen in either breast. There has been no significant interval change. IMPRESSION: NEGATIVE There is no mammographic evidence of malignancy. A 1 year screening mammogram is recommended. Based on the Tyrer Cuzick model (a risk assessment model) the patient's lifetime risk is 7.5% and her 10 year risk is 4.8%. According to the ACR, ACS, and NCCN guidelines, an annual breast MRI exam along with mammogram is recommended if the patient's lifetime risk is 20% or greater. This exam was interpreted at Station ID: [id number]. NOTE: For mammograms, a report in lay terms will be sent to the patient. Approximately 15% of breast malignancies will not be visualized mammographically. In the management of a palpable breast mass, a negative mammogram must not discourage biopsy of a clinically suspicious lesion. Electronically Signed By: Parish wilson/jin:01/19/2022 16:50:55 letter sent: Normal Exam ACR BI-RADS Category 1: Negative 3341F
== END ==
PROVIDERS: PCP Family Medicine; Referring Provider Family Medicine; Visit Provider Family Medicine
DX: Z12.31 Encounter for screening mammogram for malignant neoplasm of breast (principal); Z80.3 Family history of malignant neoplasm of breast
CPT/HCPCS: 77063; 77067

== ENCOUNTER → 2022-03-20 13:58 | Outpatient (CLI) | payer MEDICARE, OTHER, SELFPAY ==
--- NOTE | 2022-03-20 14:00 | DI.RAD.S_ITS ---
PROCEDURE: XR CHEST 2V INDICATIONS: chronic cough TECHNIQUE: 2 views of the chest were acquired. COMPARISON: [facility], , CHEST 1 VIEW, 01/01/2011, 15:26. FINDINGS: Surgical changes and devices: None. Lungs and pleura: Lungs are mildly hyperinflated and hyperlucent. No dense consolidations. No pleural effusions or pneumothorax. Mediastinum: Mediastinal contours are normal. Slight prominence of the central pulmonary arteries. No central vascular congestion. Heart size is normal. Bones and chest wall: No suspicious bony abnormalities. Soft tissues appear unremarkable. IMPRESSION: 1. Changes of asthma/emphysema. Dictated by: Yomaira Holt M.D. on 03/20/2022 at 17:39 Approved by: Yomaira Holt M.D. on 03/20/2022 at 17:39
== END ==
PROVIDERS: PCP Family Medicine; Referring Provider Family Medicine; Visit Provider Family Medicine
DX: R05.3 Chronic cough (principal); J45.909 Unspecified asthma, uncomplicated; J43.9 Emphysema, unspecified
CPT/HCPCS: 71046

== ENCOUNTER → 2022-04-27 13:43 | Outpatient (CLI) | payer MEDICARE, OTHER, SELFPAY ==
--- NOTE | 2022-05-03 08:30 | PM.PFT.1 ---
Pulmonary Function Test Referral & Results Date Patient Seen: 04/27/22 Results: The spirometry demonstrates an FVC of 3.01 L which is 86% of predicted. The FEV1 was measured at 2.20 L which is 83% of predicted. The FEV1/FVC ratio was 73 which is 96% of predicted. Following the administration of bronchodilator there was a 68% improvement in FEF 25-75%. Lung volumes show an SVC of 3.23 L which is 99% of predicted. The diffusing capacity was measured at 18.46 which is 62% of predicted. No hemoglobin value was provided, so no correction for potential anemia could be made, if appropriate. The maximum voluntary ventilation was reduced Interpretation: This study demonstrates possibly mild obstructive lung disease based on minimal reduction FEV1 although FEV1/FVC ratio is preserved. There is however evidence of benefit in small airway flow after bronchodilator as above based on improvement in FEF 25-75% Lung volumes are normal There is a moderate reduction in diffusing capacity suggesting disease at the capillary alveolar level, unless patient is anemic as above Clinical correlation suggested
== END ==
PROVIDERS: PCP Family Medicine; Referring Provider Family Medicine; Visit Provider Family Medicine
DX: R05.3 Chronic cough (principal); Z87.891 Personal history of nicotine dependence; J98.8 Other specified respiratory disorders
CPT/HCPCS: 94060; 94726; 94729

== ENCOUNTER → 2022-06-01 11:17 | Outpatient (CLI) | payer MEDICARE, OTHER, SELFPAY ==
[2022-06-01 12:14] LABS: Add Manual Diff / Slide Review NO; Basophils Absolute Auto 0 /uL (0-100); Basophils Percent Auto 0.5 % (0-2); Eosinophils Absolute Auto 200 /uL (0-450); Eosinophils Percent Auto 3.5 % (2-4); Hematocrit 40.3 % (36-46); Hemoglobin 13.9 g/dL (12.0-16.0); Lymphocytes Absolute Auto 1900 /uL (1100-4500); Lymphocytes Percent Auto 33.5 % (25-40); Mean Corpuscular HGB Conc 34.6 % (30-36); Mean Corpuscular Hemoglobin 30.3 PG (26-34); Mean Corpuscular Volume 87.7 fL (80-100); Monocytes Absolute Auto 500 /uL (0-900); Monocytes Percent Auto 8.9 % (3-14); Neutrophils Absolute Auto 3000 /uL (1500-7000); Neutrophils Percent Auto 53.6 % (50-75); Platelet Count 214 X10^3/uL (150-400); Red Cell Distribution Width 13.7 % (11.6-14.8); White Blood Cell Count 5.6 X10^3/uL (4.5-11.0)
[2022-06-01 12:32] LABS: HEMOLYSIS < 15 (0-50)
[2022-06-01 12:33] LABS: Blood Urea Nitrogen 18 mg/dL (7-17); Calcium 9.3 mg/dL (8.4-10.2); Carbon Dioxide 27 mmol/L (22-32); Chloride 105 mmol/L (98-107); Estimated Glomerular Filt Rate > 60 mL/min (>60); Glucose 97 mg/dL (80-110); Sodium 136 mmol/L (137-145)
[2022-06-01 13:13] LABS: Potassium 4.4 mmol/L (3.4-5.1)
[2022-06-02 05:14] LABS: Labcorp Hemoglobin (Hb) A1c 5.6 % (4.8-5.6)
== END ==
PROVIDERS: PCP Family Medicine; Referring Provider Orthopaedic Surgery Foot and Ankle Surgery; Visit Provider Orthopaedic Surgery Foot and Ankle Surgery
DX: R73.9 Hyperglycemia, unspecified (principal); Z01.812 Encounter for preprocedural laboratory examination
CPT/HCPCS: 36415; 80048; 83036; 85025

== ENCOUNTER → 2022-08-01 11:12 | Outpatient (CLI) | payer MEDICARE, OTHER, SELFPAY ==
--- NOTE | 2022-08-01 11:29 | DI.DEXA.S_ITS ---
Bone Density Report Name: YVONNE MARCOS Age: 72 Sex: Female Ethnicity: White Date of : 1950 Indication: postmenopausal; screening for osteoporosis; Referring Provider: HEMANT MENDOZA Study: Bone densitometry was performed. Exam Date: August 01, 2022 Accession number: [id number] Bone Density: Region BMD T-score Z-score Classification AP Spine(L1, L2) 0.986 0.1 2.1 Normal Femoral Neck (Left) 0.788 -0.6 1.3 Normal Total Hip (Left) 0.830 -0.9 0.7 Normal Femoral Neck (Right) 0.798 -0.5 1.4 Normal Total Hip (Right) 0.953 0.1 1.7 Normal Total Hip Mean 0.891 -0.4 1.2 Normal World Health Organization criteria for BMD impression classify patients as: Normal (T-score at or above -1.0), Osteopenia (T-score between -1.0 and -2.5), or Osteoporosis (T-score at or below -2.5). 10-year Fracture Risk: FRAX not reported because: All T-scores for Spine Total, Hip Total, Femoral Neck at or above -1.0 Impression: The patient has normal bone mass. Discussion: BONE DENSITY IS ABOVE THE MINIMUM DESIRABLE LEVEL AT ALL SKELETAL SITES TESTED. This patient?s bone mineral density is above the minimum desirable level (T-score -1.0 or better) at all sites measured. The patient should follow a healthful lifestyle (good nutrition with adequate calcium and vitamin D, and appropriate weight-bearing exercise). Follow-Up: Consider repeating this study in 5 years or sooner if there is some new clinical indication. Reported by: MICHELET CHEEK M.D. on 08/01/2022 11:42:00 AM.
== END ==
PROVIDERS: PCP Family Medicine; Referring Provider Family Medicine; Visit Provider Family Medicine
DX: Z78.0 Asymptomatic menopausal state (principal); Z13.820 Encounter for screening for osteoporosis; I10 Essential (primary) hypertension; F32.9 Major depressive disorder, single episode, unspecified; R79.89 Other specified abnormal findings of blood chemistry; F41.1 Generalized anxiety disorder; Z01.818 Encounter for other preprocedural examination
CPT/HCPCS: 77080; 93005

== ENCOUNTER → 2022-08-01 11:17 | Outpatient (CLI) | payer MEDICARE, OTHER, SELFPAY | PROVIDERS: PCP Family Medicine; Referring Provider Orthopaedic Surgery Foot and Ankle Surgery; Visit Provider Orthopaedic Surgery Foot and Ankle Surgery | DX: Z01.818 Encounter for other preprocedural examination (principal) | CPT/HCPCS: 93005 ==

== ENCOUNTER 2022-08-04 13:46 | Emergency (ER) | payer MEDICARE, OTHER, SELFPAY ==
[2022-08-04 13:58] VITALS: BP 95/55; PULSE 56; RESP 16; TEMP 36.5; O2SAT 100; BMI 23.5
[2022-08-04 15:38] VITALS: BP 107/55; PULSE 59; RESP 17; O2SAT 99
--- NOTE | 2022-08-04 15:42 | PC.NURSE ---
Patient had total knee replacement of left knee done yesterday. Today pain in left knee is not controlled. She took 1 vicodin and some ibuprofen with minimal relief. She states she was not told that she could take more of the vicodin so she did not. She called her surgeon's office and they prescribed a heavy duty anti-inflammatory which she hasn't started taking yet. Also yesterday, she sustained a cat bite injury to the left ankle/foot area. She has a history of cat bite fever that resulted in a multiple day hospital admission. She called her surgeon yesterday and she was precribed and began taking augmentin for this. The wound does not look red or inflamed. There are several scratches and one laceration that is 1cm and is deeper with some fatty tissue visualized.
[2022-08-04] MEDS: HYDROCODONE/ACET 5/325 TABLET 1 TAB PO (16:30)
--- NOTE | 2022-08-04 16:37 | ED_ITS ---
HPI - Extremity Injury (Lower) <Wendy Vizcarra PA-C - Last Filed: 08/04/22 18:33> General Chief Complaint: Extremity Injury, Lower Stated Complaint: post op T-1 knee surgery pain is unbearable Time Seen by Provider: 08/04/22 15:24 Source: patient Mode of arrival: Wheelchair History of Present Illness HPI Narrative: Is a 72-year-old woman with history of left knee replacement surgery yesterday, who presents with concern for cat bite to her left ankle sustained this morning. Patient states that she does not know what happened her CT became aggravated and just started biting her like crazy she has multiple small puncture wounds to her foot and states that he ripped open the back of her ankle. She called her surgeon about this and they already prescribed Augmentin for her which she has taken her initial dose of. She is here today in the event that she needs stitches and also notes that she is having postoperative left knee pain and has only taken 1 of her hydrocodone to help with the pain. She states that she has talked to her surgeon and they also prescribed an anti-inflammatory for her to help with her pain symptoms. She denies any other complaints or concerns. Related Data Home Medications Medication Instructions Recorded Confirmed [Iberogast] 20 drp PO Q DAY PRN Abdominal 02/03/16 07/18/22 Distention ##0 sertraline 100 mg tablet 100 mg PO DAILY 03/20/22 07/18/22 sertraline 50 mg tablet 50 mg PO DAILY 03/20/22 07/18/22 atorvastatin 40 mg tablet 40 mg PO DAILY 07/18/22 07/18/22 Previous Rx's Medication Instructions Recorded albuterol sulfate 90 mcg/actuation 2 puff inhalation Q6H PRN 07/20/21 aerosol inhaler shortness of breath or wheezing #8.5 grams cetirizine 10 mg tablet (Zyrtec) 10 mg PO DAILY PRN allergy 03/20/22 symptoms #90 tabs fluticasone propionate 110 1 puff inhalation BID #12 grams 03/20/22 mcg/actuation HFA aerosol inhaler (Flovent HFA) fluticasone propionate 50 2 spray intranasal DAILY PRN 03/20/22 mcg/actuation nasal allerg #16 grams spray,suspension atenolol 50 mg tablet 50 mg PO QDAY #90 tabs 04/17/22 hydroxyzine HCl 10 mg tablet 10 mg PO TID PRN anxiety #90 tabs 07/18/22 Allergies Allergy/AdvReac Type Severity Reaction Status Date / Time morphine [MORPHINE] Allergy Unknown HIVES Verified 08/04/22 14:07 Sulfa (Sulfonamide Allergy Unknown HIVES Verified 08/04/22 14:07 Antibiotics) [SULFA (SULFONAMIDE ANTIBIOTICS)] Review of Systems <Wendy Vizcarra PA-C - Last Filed: 08/04/22 18:33> Review of Systems Narrative: See HPI Patient History <Wendy Vizcarra PA-C - Last Filed: 08/04/22 18:33> Medical History Benign essential HTN Depression Elevated LFTs Encounter for subsequent annual wellness visit (AWV) in Medicare patient RACHELE (generalized anxiety disorder) GERD (gastroesophageal reflux disease) Hyperlipidemia Lumbar stenosis with neurogenic claudication Social History household members: family Smoking Status: Former smoker alcohol intake: current Smoking Status: Former smoker alcohol intake frequency: 0-2 drinks per day Alcohol type: wine Substance Use Type: does not use Exam <Wendy Vizcarra PA-C - Last Filed: 08/04/22 18:33> Narrative Exam Narrative: GENERAL: 72 year old patient appears stated age. Well-developed patient, in mild distress. HEAD: Atraumatic. Normocephalic. EYES: Pupils equal round and reactive. Extraocular motions intact. No scleral icterus. No injection or drainage. ENT: Nose without bleeding, purulent drainage. Throat without erythema, tonsillar hypertrophy or exudate. Airway patent. NECK: Trachea midline. CARDIOVASCULAR: Regular rate and rhythm without murmurs, gallops, or rubs. RESPIRATORY: Clear to auscultation. Breath sounds equal bilaterally. No wheezes, rales, or rhonchi. GASTROINTESTINAL: Abdomen soft, non-tender, nondistended. EXTREMITIES: The left knee is wrapped in a bandage consistent with recent surgery there is mild swelling above and below the knee. There is road is reduced mobility 2nd to pain There are multiple small puncture/abrasion wounds on the medial aspect of the foot and posterior aspect of the foot, additionally there are 2 full-thickness lacerations of the left ankle, 1 is 2 cm in length with adipose tissue showing and 1 is 1.5 cm in length that is directly over the Achilles tendon. The laceration over the Achilles tendon is not as deep patient has normal active range of motion of the ankle. There is no evidence of infection at the cat bite site//lacerations. No edema or joint tenderness. NEURO: AOx3. SKIN: No rash or erythema of visible areas Initial Vital Signs Initial Vital Signs: Vital Signs Temperature 97.7 F 08/04/22 13:58 Pulse Rate 56 L 08/04/22 13:58 Respiratory Rate 16 08/04/22 13:58 Blood Pressure 95/55 L 08/04/22 13:58 Pulse Oximetry 100 08/04/22 13:58 Oxygen Delivery Method Room Air 08/04/22 13:58 <Hanh Saul DO - Last Filed: 08/04/22 19:46> Initial Vital Signs Initial Vital Signs: Vital Signs Temperature 97.7 F 08/04/22 13:58 Pulse Rate 56 L 08/04/22 13:58 Respiratory Rate 16 08/04/22 13:58 Blood Pressure 95/55 L 08/04/22 13:58 Pulse Oximetry 100 08/04/22 13:58 Oxygen Delivery Method Room Air 08/04/22 13:58 Procedures <Wendy Vizcarra PA-C - Last Filed: 08/04/22 18:33> Laceration Repair Laceration 1: Time of procedure: 17:55 Site: lower extremity Side (If applicable): left Size (cm): 2 Description: irregular and contaminated Depth: simple, single layer Local Anesthetic: lidocaine 2% (w/epi) Amount of anesthesia used (mL): 2 Pre-repair: wound explored, irrigated extensively, deep structures intact and cleansed with chlorhexadine Skin layer closed with: nylon Skin layer suture size: 5-0 Number of sutures: 4 Technique: simple, interrupted (Left loose approximation) Laceration 2: Time of procedure: 18:05 Site: lower extremity Side (If applicable): left Size (cm): 1.5 Description: linear Depth: simple, single layer Local Anesthetic: lidocaine 2% (With epi) Amount of anesthesia used (mL): 2 Pre-repair: wound explored, irrigated extensively, deep structures intact and cleansed with chlorhexadine Skin layer closed with: nylon Skin layer suture size: 5-0 Number of sutures: 3 Technique: simple, interrupted (Slightly loose approximation) Course <Wendy Vizcarra PA-C - Last Filed: 08/04/22 18:33> Orders Ordered: Discontinued Medications Hydrocodone Bitart/Acetaminophen (Hydrocodone/Acet 5/325 Tablet) 1 tab PO NOW ONE Stop: 08/04/22 16:11 Last Admin: 08/04/22 16:30 Dose: 1 tab Documented By: DANIAL Lidocaine/Epinephrine (Lidocaine 1% W/Epi) 5 ml SUBCUT NOW ONE Stop: 08/04/22 16:49 Lidocaine/Epinephrine (Lidocaine 2% W/Epi Inj) 5 ml INJ NOW ONE Stop: 08/04/22 17:31 Vital Signs Vital signs: Vital Signs - 8 hr 08/04/22 13:58 08/04/22 15:38 08/04/22 18:59 Temperature 97.7 F Pulse Rate 56 L 59 L 63 Respiratory Rate 16 17 12 Blood Pressure 95/55 L 107/55 L 95/51 L Pulse Oximetry 100 99 98 Oxygen Delivery Method Room Air Room Air Room Air <Hanh Saul DO - Last Filed: 08/04/22 19:46> Orders Ordered: Discontinued Medications Hydrocodone Bitart/Acetaminophen (Hydrocodone/Acet 5/325 Tablet) 1 tab PO NOW ONE Stop: 08/04/22 16:11 Last Admin: 08/04/22 16:30 Dose: 1 tab Documented By: DANIAL Lidocaine/Epinephrine (Lidocaine 1% W/Epi) 5 ml SUBCUT NOW ONE Stop: 08/04/22 16:49 Lidocaine/Epinephrine (Lidocaine 2% W/Epi Inj) 5 ml INJ NOW ONE Stop: 08/04/22 17:31 Vital Signs Vital signs: Vital Signs - 8 hr 08/04/22 13:58 08/04/22 15:38 08/04/22 18:59 Temperature 97.7 F Pulse Rate 56 L 59 L 63 Respiratory Rate 16 17 12 Blood Pressure 95/55 L 107/55 L 95/51 L Pulse Oximetry 100 99 98 Oxygen Delivery Method Room Air Room Air Room Air MDM - Extremity Injury (Lower) <Wendy Vizcarra PA-C - Last Filed: 08/04/22 18:33> Differential Diagnosis Differential diagnosis: Likely other (Cat bite, infection, laceration, punctures) Medical Records Attestation: I reviewed the patient's medical records. Treatment and disposition Shared decision making:: Shared decision-making was used to determine plan the patient's care in the emergency department plan for outpatient follow-up. MDM Narrative Medical decision making narrative: Abimael is a generally well-appearing 72-year-old woman who has a history of left knee replacement surgery yesterday who presented today with concern for left ankle cat bite sustained this morning at home. Her tetanus is up-to-date. She started Augmentin this morning as prescribed by her surgeon after calling them. Wounds today are concerning for open wound and has been less than 12 hours since the injury was sustained, after numbing they are washed out extensively and examined and she is sutured with loose sutures as above in procedures. She is advised to continue taking the Augmentin as prescribed and her regular pain medication and anti-inflammatory medication as prescribed by her surgeon for her knee. Imaging was not obtained given nature of injury, full range of motion of ankle and exam findings not concerning for needing imaging. Labs are also not obtained. Patient has no other concerning findings suggestive of other acute process, has plans to follow up with her surgeon and PCP. Return precautions provided, follow-up plan discussed, all questions answered. Discharge Plan Departure Patient Disposition: Home Clinical Impression: Cat bite involving extremity Activity Restrictions/Additional Instructions: *You have been diagnosed with cat bite of left ankle *What to do: *Please continue to take your regular medications as directed. [No] New medication prescriptions sent to your pharmacy: [Please continue the Augmentin that was prescribed by her surgeon today] [ ] New medication written as a paper prescription [ ] No new medications given *Please follow up with your primary care provider in 2-3 days, call for an appointment. Let them know you were seen in the Emergency Department and that we ask that you be seen in follow up. We will electronically transmit a record of today's note if your PCP is in our system. We did suture your wounds today to the lacerations he sustained from your cut by this morning, with loose stitches these will need to come out in 6-10 days you can have your primary care provider do this he can come back to the ER to have them removed or you can possibly have them removed when you see your surgeon for follow-up. Please monitor for signs of infection continue the antibiotics as prescribed by your surgeon. *If you do not have a primary care provider please contact the [facility] Resource line at [phone]. They will ask some questions about your medical history and help get you set up with a doctor in the community. *Return to Emergency Department if you should have any new, worsening or concerning symptoms, such as [fever greater than 101 F, shaking chills, worsening pain, persistent vomiting or other bothersome symptoms] Prescriptions: No Action albuterol sulfate 90 mcg/actuation HFA aerosol inhaler 2 puff inhalation Q6H PRN (Reason: shortness of breath or wheezing) Qty: 8.5 0RF [Iberogast] 20 drp PO Q DAY PRN (Reason: Abdominal Distention) Qty: 0 atenolol 50 mg tablet 50 mg PO QDAY Qty: 90 3RF sertraline 100 mg tablet 100 mg PO DAILY Patient Comments: TAKE ONE TABLET BY MOUTH ONE TIME DAILY - TAKE WITH 50 MG TABLETS FOR TOTAL OF 150 MG DAILY - cetirizine [Zyrtec] 10 mg tablet 10 mg PO DAILY PRN (Reason: allergy symptoms) Qty: 90 3RF fluticasone propionate 50 mcg/actuation spray,suspension 2 spray intranasal DAILY PRN (Reason: allerg) Qty: 16 11RF Rx Instructions: administer into each nostril fluticasone propionate [Flovent HFA] 110 mcg/actuation HFA aerosol inhaler 1 puff inhalation BID Qty: 12 11RF atorvastatin 40 mg tablet 40 mg PO DAILY hydroxyzine HCl 10 mg tablet 10 mg PO TID PRN (Reason: anxiety) Qty: 90 11RF sertraline 50 mg tablet 50 mg PO DAILY Referrals: Adilia Scott DO [Primary Care Provider] - Stand Alone Forms: Patient Portal/API <Hanh Saul DO - Last Filed: 08/04/22 19:46> Cosign ED Attending Cosignature Attestation: I was immediately available in the department for consultation. Documentation has been reviewed.
[2022-08-04 18:59] VITALS: BP 95/51; PULSE 63; RESP 12; O2SAT 98
== END 2022-08-04 19:01 | disposition home or self-care (01) ==
PROVIDERS: Emergency Provider Student in an Organized Health Care Education/Training Program; PCP Family Medicine
DX: S91.052A Open bite, left ankle, initial encounter (principal); W55.01XA Bitten by cat, initial encounter
CPT/HCPCS: 12002; 99283

== ENCOUNTER 2022-08-11 14:38 | Emergency (ER) | payer MEDICARE, OTHER, SELFPAY ==
[2022-08-11 14:47] VITALS: BP 141/62; PULSE 61; RESP 16; TEMP 36.9; O2SAT 99; BMI 24.9
[2022-08-11 16:00] VITALS: BP 144/70; PULSE 62; RESP 18; O2SAT 97
[2022-08-11 16:36] LABS: Add Manual Diff / Slide Review NO; Basophils Absolute Auto 0 /uL (0-100); Basophils Percent Auto 0.4 % (0-2); Eosinophils Absolute Auto 200 /uL (0-450); Hematocrit 30.4 % (36-46); Hemoglobin 10.3 g/dL (12.0-16.0); Lymphocytes Absolute Auto 1700 /uL (1100-4500); Lymphocytes Percent Auto 21.5 % (25-40); Mean Corpuscular HGB Conc 33.9 % (30-36); Mean Corpuscular Hemoglobin 30.8 PG (26-34); Monocytes Absolute Auto 700 /uL (0-900); Monocytes Percent Auto 9.4 % (3-14); Neutrophils Absolute Auto 5200 /uL (1500-7000); Neutrophils Percent Auto 65.7 % (50-75); Platelet Count 354 X10^3/uL (150-400); Red Blood Cell Count 3.33 X10^6/uL (4.0-5.2); Red Cell Distribution Width 13.8 % (11.6-14.8); White Blood Cell Count 7.9 X10^3/uL (4.5-11.0)
[2022-08-11 16:38] LABS: BUN Creatinine Ratio 17.4 (6-22); Blood Urea Nitrogen 12 mg/dL (7-17); Calcium 9.1 mg/dL (8.4-10.2); Carbon Dioxide 27 mmol/L (22-32); Chloride 101 mmol/L (98-107); Estimated Glomerular Filt Rate > 60 mL/min (>60); Glucose 100 mg/dL (80-110); HEMOLYSIS < 15 (0-50); Potassium 4.2 mmol/L (3.4-5.1); Sodium 137 mmol/L (137-145)
[2022-08-11] MEDS: KETOROLAC 30 MG/ML VIAL 15 MG IV (17:06)
[2022-08-11] MEDS: AMPICILLIN/SULBACTAM 3 GM 3 GM in SODIUM CHLORIDE 0.9% 100 ML IV (17:07)
[2022-08-11 17:14] LABS: Lactate (Lactic Acid) 1.1 mmol/L (0.7-2.1)
[2022-08-11 17:30] LABS: Procalcitonin 0.05 ng/mL (<0.5)
--- NOTE | 2022-08-11 18:30 | ED.WOUNDLAC ---
HPI - Wound/Laceration General Chief Complaint: Wound/Laceration Stated Complaint: Cat bite infection worsening Time Seen by Provider: 08/11/22 16:55 Source: patient Mode of arrival: Wheelchair History of Present Illness HPI narrative: Patient is a 72-year-old female status post left knee surgery 1 week on August 03, sounds though was outpatient surgery, she was bit by her cat the very next day. She was seen evaluated in the ED she had sutures placed put on Augmentin. She is now been on Augmentin for about a week she still has erythema pain and swelling. She reports that she was having fevers and sweats. She says it is difficult for her to get around but she has her daughters in an out to help her. Related Data Home Medications Medication Instructions Recorded Confirmed [Iberogast] 20 drp PO Q DAY PRN Abdominal 02/03/16 08/11/22 Distention ##0 sertraline 100 mg tablet 100 mg PO DAILY 03/20/22 08/11/22 sertraline 50 mg tablet 50 mg PO DAILY 03/20/22 08/11/22 atorvastatin 40 mg tablet 40 mg PO DAILY 07/18/22 08/11/22 amoxicillin 875 mg-potassium 1 tab PO BID 08/11/22 08/11/22 clavulanate 125 mg tablet aspirin 81 mg tablet,delayed 81 mg PO BID 08/11/22 08/11/22 release hydrocodone 5 mg-acetaminophen 325 1 tab PO Q4H 08/11/22 08/11/22 mg tablet Previous Rx's Medication Instructions Recorded albuterol sulfate 90 mcg/actuation 2 puff inhalation Q6H PRN 07/20/21 aerosol inhaler shortness of breath or wheezing #8.5 grams cetirizine 10 mg tablet (Zyrtec) 10 mg PO DAILY PRN allergy 03/20/22 symptoms #90 tabs fluticasone propionate 110 1 puff inhalation BID #12 grams 03/20/22 mcg/actuation HFA aerosol inhaler (Flovent HFA) fluticasone propionate 50 2 spray intranasal DAILY PRN 03/20/22 mcg/actuation nasal allerg #16 grams spray,suspension atenolol 50 mg tablet 50 mg PO QDAY #90 tabs 04/17/22 hydroxyzine HCl 10 mg tablet 10 mg PO TID PRN anxiety #90 tabs 07/18/22 levofloxacin 750 mg tablet 750 mg PO DAILY 7 days #7 tabs 08/11/22 metronidazole 500 mg tablet 500 mg PO Q8H 7 days #21 tabs 08/11/22 Allergies Allergy/AdvReac Type Severity Reaction Status Date / Time morphine [MORPHINE] Allergy Unknown HIVES Verified 08/11/22 15:01 Sulfa (Sulfonamide Allergy Unknown HIVES Verified 08/11/22 15:01 Antibiotics) [SULFA (SULFONAMIDE ANTIBIOTICS)] Review of Systems Review of Systems ROS Unobtainable: All systems reviewed & are unremarkable except as noted in HPI and below Patient History Medical History Benign essential HTN Depression Elevated LFTs Encounter for subsequent annual wellness visit (AWV) in Medicare patient RACHELE (generalized anxiety disorder) GERD (gastroesophageal reflux disease) Hyperlipidemia Lumbar stenosis with neurogenic claudication Social History household members: family Smoking Status: Former smoker alcohol intake: current Smoking Status: Former smoker alcohol intake frequency: 0-2 drinks per day Alcohol type: wine Substance Use Type: does not use Exam Initial Vital Signs Initial Vital Signs: Vital Signs Temperature 98.4 F 08/11/22 14:47 Pulse Rate 61 08/11/22 14:47 Respiratory Rate 16 08/11/22 14:47 Blood Pressure 141/62 H 08/11/22 14:47 Pulse Oximetry 99 08/11/22 14:47 Oxygen Delivery Method Room Air 08/11/22 14:47 GENERAL: Alert well-appearing 72-year-old female CARDIOVASCULAR: peripheral pulses in tact, cap refill <2 sec RESPIRATORY: No respiratory distress, speaks in full sentences without difficulty EXTREMITIES: Normal range of motion, no clubbing or edema. Neurovascularly intact NEUROLOGICAL: Cranial nerves II through XII grossly intact. Normal gait and speech. SKIN: Left leg erythema sutures in place, erythema 14 cm x 6 cm non circumferential. Left knee bandage in place healing contusion Course Orders Ordered: Discontinued Medications Ampicillin Sodium/Sulbactam (Sodium 3 gm/ Sodium Chloride) 100 mls @ 200 mls/hr IV NOW ONE Stop: 08/11/22 16:56 Last Infusion: 08/11/22 17:45 Dose: 0 mls/hr Documented By: Admin: 08/11/22 17:07 Dose: 200 mls/hr Documented By: YAMILE Ketorolac Tromethamine (Ketorolac 30 Mg/Ml Vial) 15 mg IV NOW ONE Stop: 08/11/22 16:56 Last Admin: 08/11/22 17:06 Dose: 15 mg Documented By: YAMILE Levofloxacin (Levofloxacin 250 Mg Tablet) 750 mg PO NOW ONE Stop: 08/11/22 18:48 Last Admin: 08/11/22 19:06 Dose: 750 mg Documented By: YAMILE Metronidazole (Metronidazole 500 Mg Tablet) 500 mg PO NOW ONE Stop: 08/11/22 18:54 Last Admin: 08/11/22 19:06 Dose: 500 mg Documented By: YAMILE Morphine Sulfate (Morphine 2 Mg/Ml Inj) 1 mg IV Q2HR PRN PRN Reason: Pain, Moderate (4-6) Vital Signs Vital signs: Vital Signs - 8 hr 08/11/22 20:25 Pulse Rate 70 Respiratory Rate 18 Blood Pressure 138/63 Pulse Oximetry 100 Oxygen Delivery Method Room Air MDM - Wound/Laceration Lab Data 08/11/22 15:40 08/11/22 15:40 Labs: Lab Results 08/11/22 08/11/22 08/11/22 Range/Units 15:20 15:20 15:40 WBC 7.9 (4.5-11.0) X10^3/uL RBC 3.33 L (4.0-5.2) X10^6/uL Hgb 10.3 L (12.0-16.0) g/dL Hct 30.4 L (36-46) % MCV 91.0 (80-100) fL MCH 30.8 (26-34) PG MCHC 33.9 (30-36) % RDW 13.8 (11.6-14.8) % Plt Count 354 (150-400) X10^3/uL Neut % (Auto) 65.7 (50-75) % Lymph % (Auto) 21.5 L (25-40) % [place] % (Auto) 9.4 (3-14) % Eos % (Auto) 3.0 (2-4) % Baso % (Auto) 0.4 (0-2) % Neut # (Auto) 5200 (5287-2867) /uL Lymph # (Auto) 1700 (4154-2161) /uL [place] # (Auto) 700 (0-900) /uL Eos # (Auto) 200 (0-450) /uL Baso # (Auto) 0 (0-100) /uL Sodium (137-145) mmol/L Potassium (3.4-5.1) mmol/L Chloride (98-107) mmol/L Carbon Dioxide (22-32) mmol/L BUN (7-17) mg/dL Creatinine (0.52-1.04) mg/dL Estimated GFR (>60) mL/min BUN/Creatinine Ratio (6-22) Glucose (80-110) mg/dL Lactate 1.1 (0.7-2.1) mmol/L Calcium (8.4-10.2) mg/dL Procalcitonin 0.05 (<0.5) ng/mL 08/11/ Range/Units 15:40 WBC (4.5-11.0) X10^3/uL RBC (4.0-5.2) X10^6/uL Hgb (12.0-16.0) g/dL Hct (36-46) % MCV (80-100) fL MCH (26-34) PG MCHC (30-36) % RDW (11.6-14.8) % Plt Count (150-400) X10^3/uL Neut % (Auto) (50-75) % Lymph % (Auto) (25-40) % [place] % (Auto) (3-14) % Eos % (Auto) (2-4) % Baso % (Auto) (0-2) % Neut # (Auto) (2655-4837) /uL Lymph # (Auto) (3549-2519) /uL [place] # (Auto) (0-900) /uL Eos # (Auto) (0-450) /uL Baso # (Auto) (0-100) /uL Sodium 137 (137-145) mmol/L Potassium 4.2 (3.4-5.1) mmol/L Chloride 101 (98-107) mmol/L Carbon Dioxide 27 (22-32) mmol/L BUN 12 (7-17) mg/dL Creatinine 0.69 (0.52-1.04) mg/dL Estimated GFR > 60 (>60) mL/min BUN/Creatinine Ratio 17.4 (6-22) Glucose 100 (80-110) mg/dL Lactate (0.7-2.1) mmol/L Calcium 9.1 (8.4-10.2) mg/dL Procalcitonin (<0.5) ng/mL MDM Narrative Medical decision making narrative: Patient is 72-year-old female with cat bite on Augmentin for 1 week presenting today with ongoing erythema pain and swelling. She has no fever hypotension tachycardia signs of sepsis. There is no leukocytosis blood cultures are pending. Fairly localized erythema is not circumferential. She is unable to bear weight but I think secondary to postop swelling, no suspicion for septic knee. Erythema very localized to the ankle. Sutures have been removed. Discussion with Dr. Calle, orthopedics, regards to admission versus outpatient. At this time we agree reasonable to discharge her home on alternative antibiotic regimen. She is given Levaquin and Flagyl here in the ED. She is given strict instructions on return precautions. Discharge Plan Departure Patient Disposition: Home Clinical Impression: Cat bite Instructions: Animal Bites Activity Restrictions/Additional Instructions: *You have been diagnosed with cat bite *What to do: At this time increase activity as tolerated please monitor redness. If redness is going at least 2 fingers beyond the marked line then he needs return to the emergency. *Continue to take medications as directed--> SENT TO [facility] Levaquin 750 mg once daily for 7 days Flagyl 500 mg 3 times daily for 7 days *Follow up with your primary care provider in 2-3 days or call [phone] Follow-up with orthopedics next week and sooner if redness worsens *Return to ER if you should have increasing redness pain swelling or any new, worsening or concerning symptoms Prescriptions: New metronidazole 500 mg tablet 500 mg PO Q8H 7 Days Qty: 21 0RF levofloxacin 750 mg tablet 750 mg PO DAILY 7 Days Qty: 7 0RF No Action albuterol sulfate 90 mcg/actuation HFA aerosol inhaler 2 puff inhalation Q6H PRN (Reason: shortness of breath or wheezing) Qty: 8.5 0RF [Iberogast] 20 drp PO Q DAY PRN (Reason: Abdominal Distention) Qty: 0 atenolol 50 mg tablet 50 mg PO QDAY Qty: 90 3RF sertraline 100 mg tablet 100 mg PO DAILY Patient Comments: TAKE ONE TABLET BY MOUTH ONE TIME DAILY - TAKE WITH 50 MG TABLETS FOR TOTAL OF 150 MG DAILY - cetirizine [Zyrtec] 10 mg tablet 10 mg PO DAILY PRN (Reason: allergy symptoms) Qty: 90 3RF fluticasone propionate 50 mcg/actuation spray,suspension 2 spray intranasal DAILY PRN (Reason: allerg) Qty: 16 11RF Rx Instructions: administer into each nostril fluticasone propionate [Flovent HFA] 110 mcg/actuation HFA aerosol inhaler 1 puff inhalation BID Qty: 12 11RF atorvastatin 40 mg tablet 40 mg PO DAILY hydroxyzine HCl 10 mg tablet 10 mg PO TID PRN (Reason: anxiety) Qty: 90 11RF aspirin 81 mg tablet,delayed release (DR/EC) 81 mg PO BID Patient Comments: take 1 tablet by mouth 2 times every day starting after surgery amoxicillin-pot clavulanate 875-125 mg tablet 1 tab PO BID hydrocodone-acetaminophen 5-325 mg tablet 1 tab PO Q4H Patient Comments: TAKE ONE TABLET BY MOUTH EVERY FOUR HOURS NEEDED FOR PAIN sertraline 50 mg tablet 50 mg PO DAILY Referrals: Adilia Scott DO [Primary Care Provider] - Stand Alone Forms: Patient Portal/API
--- NOTE | 2022-08-11 18:36 | DI.US.S_ITS ---
PROCEDURE: US PERIPH VENOUS LOW EXTREM LT INDICATIONS: SWELLING POST OP TECHNIQUE: Real-time imaging, as well as color and pulse Doppler interrogation, were performed of the lower extremity deep veins from the inguinal ligament to the popliteal fossa. COMPARISON: None. FINDINGS: The common femoral, femoral and popliteal veins are normally compressible, and free of intraluminal thrombus. Color and pulse Doppler demonstrate normal phasic intraluminal flow. There is normal augmentation response to distal compression maneuver. IMPRESSION: No sonographic evidence of deep venous thrombosis in the left lower extremity. Approved by: Jens Deutsch M.D. on 08/11/2022 at 20:10
[2022-08-11 19:00] VITALS: BP 135/60; PULSE 67; RESP 18; O2SAT 100
[2022-08-11] MEDS: metroNIDAZOLE 500 MG TABLET PO (19:06)
[2022-08-11] MEDS: levoFLOXacin 250 MG TABLET 750 MG PO (19:06)
[2022-08-11 20:25] VITALS: BP 138/63; PULSE 70; RESP 18; O2SAT 100
== END 2022-08-11 20:32 | disposition home or self-care (01) ==
PROVIDERS: Emergency Medicine; Emergency Provider Emergency Medicine; PCP Family Medicine
DX: S81.852A Open bite, left lower leg, initial encounter (principal); W55.01XA Bitten by cat, initial encounter
CPT/HCPCS: 36415; 80048; 83605; 84145; 85025; 87040; 93971; 96365; 96375; 99284; J0295; J1885

== ENCOUNTER → 2023-07-20 13:55 | Outpatient (CLI) | payer MEDICARE, OTHER, SELFPAY ==
[2023-07-20 14:33] LABS: Add Manual Diff / Slide Review NO; Basophils Absolute Auto 0 /uL (0-100); Basophils Percent Auto 0.7 % (0-2); Eosinophils Absolute Auto 100 /uL (0-450); Eosinophils Percent Auto 2.5 % (2-4); Hematocrit 39.5 % (36-46); Hemoglobin 13.7 g/dL (12.0-16.0); Lymphocytes Absolute Auto 1400 /uL (1100-4500); Lymphocytes Percent Auto 25.8 % (25-40); Mean Corpuscular HGB Conc 34.7 % (30-36); Mean Corpuscular Hemoglobin 31.1 PG (26-34); Mean Corpuscular Volume 89.6 fL (80-100); Monocytes Absolute Auto 500 /uL (0-900); Monocytes Percent Auto 9.3 % (3-14); Neutrophils Absolute Auto 3400 /uL (1500-7000); Neutrophils Percent Auto 61.7 % (50-75); Platelet Count 229 X10^3/uL (150-400); Red Blood Cell Count 4.41 X10^6/uL (4.0-5.2); Red Cell Distribution Width 13.1 % (11.6-14.8); White Blood Cell Count 5.5 X10^3/uL (4.5-11.0)
[2023-07-20 15:00] LABS: Alanine Aminotransferase 19 IU/L (<35); Albumin 4.3 g/dL (3.5-5.0); Albumin Globulin Ratio 1.5 (1.0-2.8); Alkaline Phosphatase 92 U/L (38-126); Aspartate Aminotransferase 29 IU/L (14-36); BUN Creatinine Ratio 18.3 (6-22); Bilirubin Total 1.3 mg/dL (0.2-1.3); Blood Urea Nitrogen 15 mg/dL (7-17); Calcium 9.1 mg/dL (8.4-10.2); Carbon Dioxide 27 mmol/L (22-32); Chloride 105 mmol/L (98-107); Cholesterol 142 mg/dL (140-199); Estimated Glomerular Filt Rate > 60 mL/min (>60); Globulin 2.9 g/dL (1.7-4.1); Glucose 94 mg/dL (80-110); HDL Cholesterol 46 mg/dL (40-60); HEMOLYSIS < 15 (0-50); LDL Cholesterol Calculated 69 mg/dL (<100); Potassium 4.3 mmol/L (3.4-5.1); Sodium 138 mmol/L (137-145); Total Protein 7.2 g/dL (6.3-8.2); Triglycerides 136 mg/dL (35-150)
[2023-07-23 04:57] LABS: Hep C Virus Ab w/Reflex Quant NEGATIVE s/c (NEGATIVE)
== END ==
PROVIDERS: PCP Family Medicine; Referring Provider Family Medicine; Visit Provider Family Medicine
DX: I10 Essential (primary) hypertension (principal); Z00.00 Encounter for general adult medical examination without abnormal findings; E78.5 Hyperlipidemia, unspecified; Z11.59 Encounter for screening for other viral diseases; D64.9 Anemia, unspecified
CPT/HCPCS: 36415; 80053; 80061; 85025; 86803

== ENCOUNTER → 2024-07-25 13:49 | Outpatient (CLI) | payer MEDICARE, OTHER, SELFPAY ==
[2024-01-04 16:59] VITALS: BMI 22.3
[2024-07-25 14:45] LABS: Alanine Aminotransferase 17 IU/L (<35); Albumin 4.5 g/dL (3.5-5.0); Albumin Globulin Ratio 1.5 (1.0-2.8); Alkaline Phosphatase 104 U/L (38-126); Aspartate Aminotransferase 28 IU/L (14-36); BUN Creatinine Ratio 22.2 (6-22); Bilirubin Total 1.1 mg/dL (0.2-1.3); Blood Urea Nitrogen 18 mg/dL (7-17); Calcium 9.6 mg/dL (8.4-10.2); Carbon Dioxide 26 mmol/L (22-32); Chloride 102 mmol/L (98-107); Cholesterol 153 mg/dL (140-199); Estimated Glomerular Filt Rate > 60 mL/min (>60); Globulin 3.1 g/dL (1.7-4.1); Glucose 87 mg/dL (70-99); HDL Cholesterol 42 mg/dL (40-60); HEMOLYSIS < 15 (0-50); LDL Cholesterol Calculated 73 mg/dL (<100); Potassium 4.3 mmol/L (3.4-5.1); Sodium 138 mmol/L (137-145); Total Protein 7.6 g/dL (6.3-8.2); Triglycerides 192 mg/dL (35-150)
== END ==
PROVIDERS: PCP Family Medicine; Referring Provider Family Medicine; Visit Provider Family Medicine
DX: E78.5 Hyperlipidemia, unspecified (principal); R79.89 Other specified abnormal findings of blood chemistry; I10 Essential (primary) hypertension
CPT/HCPCS: 36415; 80053; 80061

== ENCOUNTER → 2024-09-02 11:34 | Outpatient (CLI) | payer MEDICARE, OTHER, SELFPAY ==
[2024-01-04 16:59] VITALS: BMI 22.3
--- NOTE | 2024-09-02 | DI.RAD.S_ITS ---
PROCEDURE: ORTHO-XR FOOT 3V WB LEFT COMPARISON: None. 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 Slight hammertoe deformities 1st through 5th digits. 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 There is moderate degeneration in the 2nd through 5th DIP joints Soft tissues: Moderate calcification Achilles and plantar tendon insertions on the calcaneus IMPRESSION: Chronic findings as described Dictated by: Shawn Ken M.D. on 09/03/2024 at 11:27 Approved by: Shawn Ken M.D. on 09/03/2024 at 11:28
--- NOTE | 2024-09-02 | DI.RAD.S_ITS ---
PROCEDURE: ORTHO-XR FOOT 3V WB RIGHT INDICATIONS: FRACTURE OF RIGHT 5TH TOE TECHNIQUE: 3 weight-bearing views acquired of the foot. COMPARISON: None. FINDINGS: Bones: Nondisplaced transverse fracture of the 5th proximal phalangeal base appreciated. No evidence of osseous bridging Joints: Severe 1st MTP and moderate 2nd through 5th DIP degeneration noted Soft tissues: No soft tissue abnormality. IMPRESSION: Nondisplaced transverse fracture 5th proximal phalanx Degeneration Dictated by: Shawn Ken M.D. on 09/03/2024 at 11:28 Approved by: Shawn Ken M.D. on 09/03/2024 at 11:30
== END ==
PROVIDERS: PCP Family Medicine; Referring Provider Podiatrist Foot & Ankle Surgery; Visit Provider Podiatrist Foot & Ankle Surgery
DX: S92.514A Nondisplaced fracture of proximal phalanx of right lesser toe(s), initial encounter for closed fracture (principal); M19.072 Primary osteoarthritis, left ankle and foot; M19.071 Primary osteoarthritis, right ankle and foot; M65.872 Other synovitis and tenosynovitis, left ankle and foot; M79.671 Pain in right foot; M79.672 Pain in left foot
CPT/HCPCS: 73630

== ENCOUNTER → 2024-12-30 11:56 | Outpatient (CLI) | payer MEDICARE, OTHER, SELFPAY ==
[2024-01-04 16:59] VITALS: BMI 22.3
[2024-12-30 12:39] LABS: Add Manual Diff / Slide Review NO; Hematocrit 40.6 % (36-46); Hemoglobin 14.0 g/dL (12.0-16.0); Lymphocytes Absolute Auto 1400 /uL (1100-4500); Mean Corpuscular HGB Conc 34.4 % (30-36); Mean Corpuscular Hemoglobin 30.3 PG (26-34); Mean Corpuscular Volume 88.3 fL (80-100); Platelet Count 231 X10^3/uL (150-400)
[2024-12-30 13:00] LABS: INR 1.0 (0.9-1.3); Prothrombin Time 11.3 SECONDS (9.4-12.5)
[2024-12-30 13:05] LABS: Blood Urea Nitrogen 17 mg/dL (7-17); Calcium 9.5 mg/dL (8.4-10.2); Carbon Dioxide 25 mmol/L (22-32); Chloride 101 mmol/L (98-107); Estimated Glomerular Filt Rate > 60 mL/min (>60); Glucose 102 mg/dL (70-99); HEMOLYSIS < 15 (0-50); Potassium 4.3 mmol/L (3.4-5.1); Sodium 139 mmol/L (137-145)
== END ==
PROVIDERS: PCP Family Medicine; Referring Provider Podiatrist Foot & Ankle Surgery; Visit Provider Podiatrist Foot & Ankle Surgery
DX: Z01.812 Encounter for preprocedural laboratory examination (principal)
CPT/HCPCS: 36415; 80048; 85025; 85610